=== PATIENT | male | born 1970 | race American Indian/Alaskan Native ===

== ENCOUNTER 2018-02-15 19:54 | Observation (INO) | payer MEDICAID ==
[2018-02-15 20:03] VITALS: BMI 33.4
--- NOTE | 2018-02-15 20:19 | ED PDOC ---
Arrival/HPI - General Chief Complaint: Chest Pain Time Seen by Provider: 02/15/18 19:58 Historian: Patient - History of Present Illness Narrative History of Present Illness (Text): 02/15/18 20:15 47 year old male smoker, whose past medical history includes hypertension, who presents to the Emergency Department complaining of chest discomfort that radiates to shoulder and arm x couple weeks. Patient notes occasionally reproducible with deep breaths. Patient denies any fever, chills, cough, leg pain, trauma, nausea, vomiting, diarrhea, urinary symptoms, back pain, neck pain , headache, dizziness, or any other complaints. Time/Duration: < month Symptom Onset: Sudden Symptom Course: Unchanged Activities at Onset: Light Context: Home Past Medical History - Provider Review Nursing Documentation Reviewed: Yes - Infectious Disease Hx of Infectious Diseases: None - Tetanus Immunization Tetanus Immunization: Unknown - Cardiac Hx Hypertension: Yes - Pulmonary Hx Asthma: Yes Hx Chronic Obstructive Pulmonary Disease (COPD): Yes - Neurological Hx Neurological Disorder: No - HEENT Hx HEENT Disorder: No - Renal Hx Renal Disorder: No - Endocrine/Metabolic Hx Endocrine Disorders: No - Hematological/Oncological Hx Blood Disorders: No - Integumentary Hx Dermatological Disorder: No - Musculoskeletal/Rheumatological Hx Musculoskeletal Disorders: No - Gastrointestinal Hx Gastrointestinal Disorders: No - Genitourinary/Gynecological Hx Genitourinary Disorders: No - Psychiatric Hx Anxiety: No Hx Bipolar Disorder: No Hx Depression: No Hx Post Traumatic Stress Disorder: No Hx Schizophrenia: No Hx Substance Use: Yes (marijuana) - Surgical History Hx Cholecystectomy: Yes - Anesthesia Hx Anesthesia: Yes Hx Anesthesia Reactions: No Hx Malignant Hyperthermia: No - Suicidal Assessment Feels Threatened In Home Enviroment: No Family/Social History - Physician Review Nursing Documentation Reviewed: Yes Family/Social History: Unknown Family HX Smoking Status: Heavy Smoker > 10 Cigarettes Daily Hx Alcohol Use: Yes (1 bottle of beer) Frequency of alcohol use: Daily Hx Substance Use: Yes (marijuana) Substance used: some days Hx Substance Use Treatment: No Allergies/Home Meds Allergies/Adverse Reactions: Allergies No Known Allergies Allergy (Verified 02/15/18 20:02) Home Medications: Home Meds Medication Instructions Recorded Confirmed Amlodipine Besylate 10 mg PO DAILY 06/29/14 02/15/18 Tiotropium [place] [Spiriva] 18 mcg IH PRN PRN 06/29/14 02/15/18 Naproxen [Naprosyn] 500 mg PO BID PRN 03/29/15 02/15/18 Simvastatin [Simvastatin] 10 mg PO DAILY 03/29/15 02/15/18 Hydrocortisone 2.5% (Rectal) 1 appl RC BID PRN 02/07/17 02/15/18 [Anusol-Hc] Review of Systems - Physician Review All systems were reviewed & negative as marked: Yes - Review of Systems Constitutional: Normal Eyes: Normal ENT: Normal Respiratory: Normal. absent: SOB, Cough Cardiovascular: Chest Pain (radiates to shoulder and arm) Gastrointestinal: Normal. absent: Abdominal Pain, Diarrhea, Nausea Genitourinary Male: Normal. absent: Dysuria, Frequency, Hematuria Musculoskeletal: Normal. absent: Back Pain, Neck Pain Skin: Normal. absent: Rash Neurological: Normal. absent: Headache, Dizziness Endocrine: Normal Hemo/Lymphatic: Normal Psychiatric: Normal Physical Exam Vital Signs Reviewed: Yes Vital Signs Temp Pulse Resp BP Pulse Ox 02/15/18 23:01 98.6 F 82 16 136/86 100 02/15/18 23:00 97.6 F 81 18 116/82 96 02/15/18 22:51 18 02/15/18 22:44 82 16 136/86 100 02/15/18 20:03 98.9 F 85 19 144/66 97 Temperature: Afebrile Blood Pressure: Normal Pulse: Regular Respiratory Rate: Normal Appearance: Positive for: Well-Appearing, Non-Toxic, Comfortable Pain Distress: None Mental Status: Positive for: Alert and Oriented X 3 - Systems Exam Head: Present: Atraumatic, Normocephalic Pupils: Present: PERRL Extroacular Muscles: Present: EOMI Conjunctiva: Present: Normal Mouth: Present: Moist Mucous Membranes Neck: Present: Normal Range of Motion Respiratory/Chest: Present: Clear to Auscultation, Good Air Exchange. No: Respiratory Distress, Accessory Muscle Use Cardiovascular: Present: Regular Rate and Rhythm, Normal S1, S2. No: Murmurs Abdomen: No: Tenderness, Distention, Peritoneal Signs Back: Present: Normal Inspection Upper Extremity: Present: Normal Inspection. No: Cyanosis, Edema Lower Extremity: Present: Normal Inspection. No: Edema Neurological: Present: GCS=15, CN II-XII Intact, Speech Normal Skin: Present: Warm, Dry, Normal Color. No: Rashes Psychiatric: Present: Alert, Oriented x 3, Normal Insight, Normal Concentration Medical Decision Making ED Course and Treatment: 02/15/18 20:20 Impression: 47 year old male presents to the Emergency Department complaining of chest discomfort that radiates to shoulder and arm x couple weeks. Plan: -- EKG -- Labs -- Cardiac ISO -- D Dimer -- CXR -- Reassess and disposition Progress Notes: 02/15/18 20:22 EKG reviewed, shows NSR at 89 bpm. Occasional PAC. Non-specific ST/T changes. 02/15/18 22:05: Chest X-ray read and interpreted by me shows linear atelectasis. 02/15/18 22:15: Case discussed with medical records field technician and Dr. Severino who accepts patient to the hospitalist's service. - Lab Interpretations Lab Results: 02/15/18 20:30 02/15/18 20:30 Lab Results 02/15/18 20:30: TSH 3rd Generation 2.36 02/15/18 20:30: WBC 5.1, RBC 3.70, Hgb 12.0 L, Hct 36.2 L, MCV 97.8, MCH 32.4, MCHC 33.1, RDW 12.6, Plt Count 218, MPV 9.9 02/15/18 20:30: Sodium 143, Potassium 3.8, Chloride 107, Carbon Dioxide 26, Anion Gap 14, BUN 25 H, Creatinine 0.9, Est GFR ( Amer) > 60, Est GFR ( Non-Af Amer) > 60, Random Glucose 84, Calcium 9.1, Total Bilirubin 0.6, AST 32, ALT 38, Alkaline Phosphatase 65, Lactate Dehydrogenase 442, Total Creatine Kinase 250 H, CK-MB (CK-2) 1.3, CK-MB (CK-2) % Cancelled, Troponin I < 0.01, Total Protein 6.9, Albumin 4.2, Globulin 2.7, Albumin/Globulin Ratio 1.5 02/15/18 20:30: PT 11.1, INR 0.97, APTT 26.7, D-Dimer, Quantitative < 200 - RAD Interpretation Radiology Orders: 02/15/18 20:13 CHEST PORTABLE [RAD] Stat - Medication Orders Current Medication Orders: Amlodipine Besylate (Norvasc) 10 mg PO DAILY [facility] Aspirin (Aspirin Chewable) 81 mg PO DAILY [facility] Atorvastatin Calcium (Lipitor) 10 mg PO DIN [facility] Folic Acid (Folic Acid) 1 mg PO DAILY [facility] Stop: 02/21/18 23:59 Sodium Chloride (Sodium Chloride 0.9%) 1,000 mls @ 125 mls/hr IV .Q8H [facility] Multivitamins/Vitamin C 10 ml/Thiamine HCl 100 mg/ Folic Acid 1 mg/ Sodium Chloride 1,011.2 mls @ 100 mls/hr IV .Q10H7M ONE Stop: 02/16/18 12:27 Last Admin: 02/16/18 02:55 Dose: 100 mls/hr eMAR Start Stop Document 02/16/18 02:55 FC (Rec: 02/16[facility]18 02:[facility] Intravenous Solution Start Date 02/16/18 Start Time 02:56 End Date 02/16/18 Lorazepam (Ativan) 2 mg IVP Q6H PRN; Protocol PRN Reason: Symptoms of alcohol withdrawl Multivitamins (Thera Tab) 1 tab PO 0800 [facility] Stop: 02/21/18 08:01 Naproxen (Anaprox Ds) 550 mg PO BID PRN PRN Reason: Pain, Mild (1-3) Last Admin: 02/15/18 23:59 Dose: 550 mg Nicotine (Nicoderm Cq) 1 patch TD DAILY [facility] Pantoprazole Sodium (Protonix Ec Tab) 40 mg PO 0600 [facility] Thiamine HCl (Vitamin B1 Tab) 100 mg PO DAILY [facility] Stop: 02/21/18 23:59 Tiotropium [place] (Spiriva) 18 mcg IH DAILY [facility] Discontinued Medications Aspirin (Aspirin) 325 mg PO ONCE STA Stop: 02/15/18 22:20 Last Admin: 02/15/18 22:52 Dose: 325 mg Nitroglycerin (Nitrostat Sl Tab) 0.4 mg SL Q5M [facility] Stop: 02/15/18 23:56 Last Admin: 02/16/18 00:00 Dose: Not Given Non-Admin Reason: Patient Refused - Scribe Statement The provider has reviewed the documentation as recorded by the Scribe Eunice Machado All medical record entries made by the Scribe were at my direction and personally dictated by me. I have reviewed the chart and agree that the record accurately reflects my personal performance of the history, physical exam, medical decision making, and the department course for this patient. I have also personally directed, reviewed, and agree with the discharge instructions and disposition. Disposition/Present on Arrival - Present on Arrival Any Indicators Present on Arrival: No History of DVT/PE: No History of Uncontrolled Diabetes: No Urinary Catheter: No History of Decub. Ulcer: No History Surgical Site Infection Following: None - Disposition Have Diagnosis and Disposition been Completed?: Yes Diagnosis: Chest pain Disposition: HOSPITALIZED Disposition Time: 22:16 Condition: STABLE
[2018-02-15 20:51] LABS: MEAN CELL VOLUME 97.8 fl (80.0-105.0); MEAN CORPUSCULAR HEMOGLOBIN 32.4 pg (25.0-35.0); MEAN CORPUSCULAR HGB CONC 33.1 g/dl (31.0-37.0); MEAN PLATELET VOLUME 9.9 fl (7.0-11.0); RBC 3.7 10^6/uL (3.5-6.1); RED CELL DISTRIBUTION WIDTH 12.6 % (11.5-14.5); WHITE BLOOD COUNT 5.1 10^3/ul (4.5-11.0)
[2018-02-15 20:54] LABS: INR 0.97; PARTIAL THROMBOPLASTIN TIME 26.7 Seconds (25.1-36.5); PROTHROMBIN TIME 11.1 SECONDS (9.4-12.5)
[2018-02-15 20:56] LABS: ALB/GLOB RATIO 1.5 (1.1-1.8); ALBUMIN 4.2 g/dL (3.0-4.8); ALT/SGPT 38 U/L (7-56); AST/SGOT 32 U/L (17-59); BLOOD UREA NITROGEN 25 mg/dL (7-21); CALCIUM 9.1 mg/dL (8.4-10.5); GFR AFRICAN-AMERICAN > 60; GFR NON-AFRICAN AMERICAN > 60
[2018-02-15 21:02] LABS: D DIMER < 200 mg/L DDU (0-243)
[2018-02-15 21:07] LABS: TROPONIN I < 0.01 ng/mL
[2018-02-15 21:22] LABS: CK-MB 1.3 ng/mL (0.0-3.6)
[2018-02-15] MEDS ORDERED: Naproxen 550 mg Tab PO PRN (23:30)
[2018-02-16] MEDS ORDERED: Sodium Chloride 0.9% 1,000 ML IV SCH (00:15)
--- NOTE | 2018-02-16 00:49 | CP.PCM.HP ---
<Fidencio Corcoran - Last Filed: 02/16/18 07:40> History of Present Illness - History of Present Illness History of Present Illness: Fidencio Corcoran D.O. Internal Medicine Resident, PGY-1. History and Physical for Dr Mere Felipe: Cest pain for 1 week HPI: 47 y/o male with PMH of HTN, HLD, asthma, COPD, presents to ED with 3 weeks of right sternal border chest pain, intermittent, 7-9/10, twisting in nature, positional, increased with twisting or turning his trunk, decreased by staying still. Patient took Motrin, Tylenol, Oxycodone for this pain but did not help. Pain is associated with occasional palpitations, and numbness in his left hand and shoulder. Patient also reported one bout of non bloody vomiting 3 days ago. Patient reported his asthma is intermitted, mild, uses inhalers occasionally, no hospital admissions for COPD exacerbations, never intubated. Patient admits to drinking 1/2 pint of alcohol/day, last drink yesterday. No withdrawal symptoms of tremors, diaphoresis, muscle aches, headache reported. No hemoptysis, hematemesis, blood per rectum, ROS is negative for GI, , MSK symptoms BMH: HTN, HLD, asthma, COPD, herniated lumbar desk PSH: cholecystectomy, umbilical hernia, inguinal gris repaire SocH: smokes 1/2-1 PPD x30 years, 1/2 pint of alcohol/day, occasional marijuana use FH: both parents at age late 50s MEDS: amlodipine, asa, simvastatin ALL: NKDA PMD: Dr Elaine PHARMACY: Welcome Present on Admission - Present on Admission Any Indicators Present on Admission: No Review of Systems - Constitutional Constitutional: absent: Chills, Fatigue, Fever, Headache, Lethargy, Snoring, Weight Loss - EENT Eyes: absent: Diplopia, Discharge, Irritation, Sees Flashes Ears: absent: Ear Pain, Dizziness Nose/Mouth/Throat: absent: Nasal Congestion, Nose Pain, Post Nasal Drip, Sinus Pain - Cardiovascular Cardiovascular: Chest Pain, Diaphoresis, Palpitations. absent: Dyspnea on Exertion, Irregular Heart Rhythm, Leg Edema, Lightheadedness, Pedal Edema - Respiratory Respiratory: Cough, Pain on Inspiration, Pain with Coughing. absent: Hemoptysis , Wheezing, Chest Congestion, Change in Mucous Color - Gastrointestinal Gastrointestinal: Vomiting. absent: Bloating, Coffee Ground Emesis, Constipation, Diarrhea, Dyspepsia, Dysphagia, Hematemesis, Hematochezia - Genitourinary Genitourinary: absent: Dysuria, Pyuria, Urinary Frequency, Urinary Urgency - Musculoskeletal Musculoskeletal: Back Pain, Numbness. absent: Muscle Weakness, Stiffness - Integumentary Integumentary: absent: Lesions, Pruritus, Rash, Skin Ulcer, Sores, Wounds - Neurological Neurological: Numbness. absent: Confusion, Dizziness, Focal Weakness, Frequent Falls, Headaches, Lack of Coordination - Psychiatric Psychiatric: absent: Anxiety, Confusion, Irritability, Mood Swings, Panic Attacks - Endocrine Endocrine: absent: Fatigue, Flushing - Hematologic/Lymphatic Hematologic: absent: Easy Bleeding, Easy Bruising Past Patient History - Infectious Disease Hx of Infectious Diseases: None - Tetanus Immunizations Tetanus Immunization: Unknown - Past Medical History & Family History Past Medical History?: Yes - Past Social History Smoking Status: Heavy Smoker > 10 Cigarettes Daily Alcohol: > 2 Drinks/Day Drugs: Cannabis Home Situation {Lives}: With Family - CARDIAC Hx Cardiac Disorders: Yes Hx Hypercholesterolemia: Yes Hx Hypertension: Yes - PULMONARY Hx Respiratory Disorders: Yes Hx Asthma: Yes Hx Chronic Obstructive Pulmonary Disease (COPD): Yes Hx Pneumonia: No Hx Sleep Apnea: No - NEUROLOGICAL Hx Neurological Disorder: No HX Cerebrovascular Accident: No Hx Seizures: No Hx Transient Ischemic Attacks (TIA): No - HEENT Hx HEENT Problems: No - RENAL Hx Chronic Kidney Disease: Yes Hx Kidney Stones: Yes - ENDOCRINE/METABOLIC Hx Endocrine Disorders: No Hx Diabetes Mellitus Type 2: No - HEMATOLOGICAL/ONCOLOGICAL Hx Blood Disorders: No Hx Anemia: No Hx Cancer: No Hx Shingles: No - INTEGUMENTARY Hx Dermatological Problems: No - MUSCULOSKELETAL/RHEUMATOLOGICAL Hx Musculoskeletal Disorders: No Hx Falls: No - GASTROINTESTINAL Hx Gastrointestinal Disorders: Yes (hernia repair) Hx Gall Bladder Disease: Yes (cholecystectomy) - GENITOURINARY/GYNECOLOGICAL Hx Genitourinary Disorders: No - PSYCHIATRIC Hx Psychophysiologic Disorder: Yes Hx Anxiety: Yes Hx Bipolar Disorder: No Hx Depression: Yes Hx Post Traumatic Stress Disorder: No Hx Schizophrenia: No - SURGICAL HISTORY Hx Surgeries: Yes Hx Cholecystectomy: Yes - ANESTHESIA Hx Anesthesia: Yes Hx Anesthesia Reactions: No Hx Malignant Hyperthermia: No Meds Allergies/Adverse Reactions: Allergies Allergy/AdvReac Type Severity Reaction Status Date / Time No Known Allergies Allergy Verified 02/15/18 20:02 Physical Exam - Constitutional Appears: Non-toxic, No Acute Distress - Head Exam Head Exam: ATRAUMATIC, NORMAL INSPECTION, NORMOCEPHALIC - Eye Exam Eye Exam: EOMI, Normal appearance, PERRL Pupil Exam: NORMAL ACCOMODATION, PERRL - ENT Exam ENT Exam: Mucous Membranes Moist, Normal Exam - Neck Exam Neck exam: Positive for: Normal Inspection - Respiratory Exam Respiratory Exam: Clear to Auscultation Bilateral, NORMAL BREATHING PATTERN - Cardiovascular Exam Cardiovascular Exam: REGULAR RHYTHM, +S1, +S2 - GI/Abdominal Exam GI & Abdominal Exam: Normal Bowel Sounds, Soft. absent: Tenderness - Extremities Exam Extremities exam: Positive for: normal inspection, pedal pulses present. Negative for: calf tenderness - Back Exam Back exam: NORMAL INSPECTION. absent: CVA tenderness (L), CVA tenderness (R) - Neurological Exam Neurological exam: Alert, CN II-XII Intact, Normal Gait, Oriented x3, Reflexes Normal - Psychiatric Exam Psychiatric exam: Normal Affect, Normal Mood - Skin Skin Exam: Dry, Intact, Normal Color, Warm Results - Vital Signs Recent Vital Signs: Last Vital Signs Temp 98.6 F 02/15/18 23:01 Pulse 82 02/15/18 23:01 Resp 16 02/15/18 23:01 BP 136/86 02/15/18 23:01 Pulse Ox 100 02/15/18 23:01 - Labs Result Diagrams: 02/15/18 20:30 02/15/18 20:30 - EKG Data EKG Interpreted by: ER Physician EKG shows normal: Sinus rhythm Rate: Normal Assessment & Plan - Assessment and Plan (Free Text) Assessment: 47 y/o male with PMH of HTN, HLD, asthma, COPD, presents to ED with 3 weeks of right sternal border intermittent chest pain. Trop 0.01, EKG, NSR@89. Patient is a heavy smoker, alcoholic and has family history of premature CAD. Plan: 1) Chest pain/ ACS EKG: NSR@89 QT prolonged 404, LVH Troponin 0.01 x1 will trend q6h Nitro 0.4 mg SL x3 q5min prn chest pain ASA 325 given once Naproxin q8 prn pain Echo Cardio consulted 2)Chronic alcohol use blood alcohol level ordered ativan 2 mg ivp prn. symptoms of alcohol withdrawal [facility] protocol CBC,CMP, B12, folate Banana bag ordered Supplemental thaimine, folate, multivitamin to start tomorrow am Urine drug screen ordered 3)HTN continue home med Amlodipine 10 mg continue home med ASA 81 4)HLD continue home meds lipitor 10 lipid panel ordered 5)Obesity Weight reduction addictions counselor assistant HbA1c 6)Heavy smoker chronic cough related to smoking smoking counseling discussed with patient Nicoderm 14 mg patch 7)Asthma/COPD continue home med Spiriva O2 2L prn SOB 8)Others GI ppx SCD heart healthy diet Case discussed and reviewed with Dr Severino - Date & Time Date: 02/16/18 Time: 01:00 <James Severino - Last Filed: 02/16/18 19:23> Results - Vital Signs Recent Vital Signs: Last Vital Signs Temp 97.9 F 02/16/18 08:52 Pulse 71 02/16/18 10:00 Resp 19 02/16/18 08:52 BP 128/93 H 02/16/18 08:52 Pulse Ox 97 02/16/18 08:52 - Labs Result Diagrams: 02/16/18 02:56 02/16/18 02:56 Labs: Laboratory Results - last 24 hr 02/16/18 02/16/18 02/16/18 02:56 02:56 02:56 WBC 4.4 L RBC 3.63 Hgb 11.8 L Hct 35.3 L MCV 97.2 MCH 32.5 MCHC 33.4 RDW 12.6 Plt Count 186 MPV 9.6 Gran % 46.1 L Lymph % (Auto) 44.5 H Mel[place] % (Auto) 6.7 H Eos % (Auto) 2.5 Baso % (Auto) 0.2 Gran # 2.01 Lymph # (Auto) 1.9 Mel[place] # (Auto) 0.3 Eos # (Auto) 0.1 Baso # (Auto) 0.01 Sodium 141 Potassium 3.5 L Chloride 106 Carbon Dioxide 26 Anion Gap 13 BUN 20 Creatinine 0.9 Est GFR ( Amer) > 60 Est GFR (Non-Af Amer) > 60 Random Glucose 117 H Calcium 8.8 Phosphorus 3.6 Magnesium 2.1 Total Bilirubin 0.6 AST 32 ALT 39 Alkaline Phosphatase 62 Troponin I < 0.01 Total Protein 6.7 Albumin 3.9 Globulin 2.8 Albumin/Globulin Ratio 1.4 Triglycerides 210 H Cholesterol 149 LDL Cholesterol Direct 69 HDL Cholesterol 49 Vitamin B12 449 Folate 12.2 Alcohol, Quantitative < 10 02/16/18 08:50 WBC RBC Hgb Hct MCV MCH MCHC RDW Plt Count MPV Gran % Lymph % (Auto) Mellette % (Auto) Eos % (Auto) Baso % (Auto) Gran # Lymph # (Auto) Mellette # (Auto) Eos # (Auto) Baso # (Auto) Sodium Potassium Chloride Carbon Dioxide Anion Gap BUN Creatinine Est GFR ( Amer) Est GFR (Non-Af Amer) Random Glucose Calcium Phosphorus Magnesium Total Bilirubin AST ALT Alkaline Phosphatase Troponin I < 0.01 Total Protein Albumin Globulin Albumin/Globulin Ratio Triglycerides Cholesterol LDL Cholesterol Direct HDL Cholesterol Vitamin B12 Folate Alcohol, Quantitative Attending/Attestation - Attestation I have personally seen and examined this patient.: Yes I have fully participated in the care of the patient.: Yes I have reviewed all pertinent clinical information: Yes Notes (Text): 02/16/18 19:23 Patient was seen when he was in the ER. Agree with history , physical examination, assessment and plan.
[2018-02-16] MEDS ORDERED: Multivitamin (MVI) 10 ML, Thiamine 100 MG, Folic Acid 1 MG in Sodium Chloride 0.9% 1,00... IV ONE (02:21)
[2018-02-16 03:09] LABS: BASO # 0.01 K/mm3 (0.0-2.0); BASO % 0.2 % (0.0-3.0); EOS # 0.1 (0.0-0.7); EOS % 2.5 % (1.5-5.0); GRAN # 2.01 (1.4-6.5); GRAN % 46.1 % (50.0-68.0); HEMOGLOBIN 11.8 g/dL (14.0-18.0); LYMPH # 1.9 (1.2-3.4); LYMPH % 44.5 % (22.0-35.0); MEAN CELL VOLUME 97.2 fl (80.0-105.0); MEAN CORPUSCULAR HEMOGLOBIN 32.5 pg (25.0-35.0); MEAN CORPUSCULAR HGB CONC 33.4 g/dl (31.0-37.0); MEAN PLATELET VOLUME 9.6 fl (7.0-11.0); MONO # 0.3 (0.1-0.6); MONO % 6.7 % (1.0-6.0); RBC 3.63 10^6/uL (3.5-6.1); RED CELL DISTRIBUTION WIDTH 12.6 % (11.5-14.5); WHITE BLOOD COUNT 4.4 10^3/ul (4.5-11.0)
[2018-02-16 03:21] LABS: ALB/GLOB RATIO 1.4 (1.1-1.8); ALBUMIN 3.9 g/dL (3.0-4.8); ALT/SGPT 39 U/L (7-56); AST/SGOT 32 U/L (17-59); BLOOD UREA NITROGEN 20 mg/dL (7-21); CALCIUM 8.8 mg/dL (8.4-10.5); GFR AFRICAN-AMERICAN > 60; GFR NON-AFRICAN AMERICAN > 60; HDL CHOLESTEROL 49 mg/dL (29-60)
[2018-02-16 03:31] LABS: LDL CHOLESTEROL 69 mg/dL (0-129); TROPONIN I < 0.01 ng/mL
[2018-02-16] MEDS ORDERED: Pantoprazole 40 mg EC Tab PO SCH (06:00)
[2018-02-16 08:52] VITALS: BP 128/93; RESP 19; TEMP 97.9; O2SAT 97
[2018-02-16] MEDS ORDERED: Tiotropium 18 mcg Cap For Inhalation IH SCH (10:00)
[2018-02-16] MEDS ORDERED: Potassium Chloride 20 mEq ER Tab PO ONE (10:53)
[2018-02-16 11:26] VITALS: PULSE 71
--- NOTE | 2018-02-16 11:50 | CARD ---
APPROVED REPORT Date of service: 02/16/2018 EKG Measurement Heart [id number] <Conclusion> Sinus rhythm with occasional premature ventricular complexes Nonspecific T wave abnormality Prolonged QT Abnormal ECG
--- NOTE | 2018-02-16 12:18 | RAD ---
Date of service: 02/15/2018 HISTORY: pain COMPARISON: 05/05/2016 FINDINGS: LUNGS: No active pulmonary disease. PLEURA: No significant pleural effusion identified, no pneumothorax apparent. CARDIOVASCULAR: Normal. OSSEOUS STRUCTURES: No significant abnormalities. VISUALIZED UPPER ABDOMEN: Normal. OTHER FINDINGS: None. IMPRESSION: No active disease.
[2018-02-16 13:56] LABS: FOLATE 12.2 ng/mL
--- NOTE | 2018-02-16 15:44 | CARD ---
APPROVED REPORT Date of service: 02/15/2018 EKG Measurement Heart [id number] <Conclusion> Sinus rhythm with premature atrial complexes Minimal voltage criteria for LVH, may be normal variant Prolonged QT Abnormal ECG
--- NOTE | 2018-02-16 20:03 | CON ---
Copied To: Zehra Murillo MD Attending MD: Zehra Murillo MD DATE: 02/16/2018 SERVICE: Cardiology. REASON FOR THE CONSULTATION AND FOLLOWUP: Chest pain for 2 weeks, cardiac evaluation. BRIEF CLINICAL HISTORY: This is a 47-year-old male with a past medical history significant for hypertension, hyperlipidemia, asthma, COPD. Presents to the emergency room with 2 to 3 weeks' history of right-sided parasternal chest pain, increases on movement and twisting the body and did not go away. Since last 2 weeks, when he raises his hand or moves his right arm toward the chest, chest pain hurts. Also hurts on walking and motion of the body. Denies any prior episode of chest pain. PAST HISTORY: Significant for hypertension, hyperlipidemia, obesity, asthma, COPD, herniated lumbar disk. PAST SURGICAL HISTORY: Significant for cholecystectomy 4 to 5 years ago, history of umbilical hernia, history of inguinal hernia repair. SOCIAL HISTORY: Active tobacco abuse. Smokes half a pack a day, more than 30 years. Heavy alcohol abuse, drinks hard liquor half a pint everyday. Occasional marijuana use. FAMILY HISTORY: No significant history of coronary artery disease in the family. CURRENT MEDICATIONS: The patient is taking amlodipine and taking Zocor 10 mg daily. ALLERGIES: NO KNOWN DRUG ALLERGIES. REVIEW OF SYSTEMS: As per HPI. PHYSICAL EXAMINATION: GENERAL: Height of the patient 5 feet 8 inches, weight of the patient 220 pounds, body mass index 33.5 kg/m2. VITAL SIGNS: Temperature afebrile, heart rate 63, blood pressure 128/93. HEENT: PERRLA. Extraocular muscles intact. NECK: Supple. No carotid bruit. No thyromegaly. CHEST: Clear to auscultation. HEART: S1 and S2, regular. ABDOMEN: Soft. EXTREMITIES: Clubbing and cyanosis negative. LABORATORY DATA: Blood workup as follows; WBC 4.5, hemoglobin 11.8, hematocrit 35.3, platelet count 186. Chemistry shows sodium 145, potassium 3.5, chloride 106, carbon dioxide 26, anion gap of 13. BUN 20, creatinine 0.9. Troponin 0.01, negative. TSH 2.36. Total cholesterol 149, LDL 69, triglyceride 210, HDL 49. EKG shows normal sinus rhythm. No acute [id number] noted. IMPRESSION: Atypical chest pain, musculoskeletal, increases on movement and twisting the body, but given the multiple risk factors of coronary artery disease including hypertension, hyperlipidemia, active tobacco abuse, questionable history of brother , he did not tell me, but he told the residents the patient's brother , sudden . Given these risk factors, suggest echo and a stress test. We will get echo today and a stress test has been scheduled as outpatient. We will also supplement potassium. Discussed with Dr. Peoples, attending of the case and we will start some nonsteroidal antiinflammatory drug, Naprosyn, and supplement potassium. We will follow with you. We will discontinue telemetry and schedule stress test as outpatient. Thank you Dr. Peoples, for providing us the opportunity in taking care of the patient, Juwan Anderson. Zehra Murillo MD
[2018-02-17] MEDS ORDERED: Multivitamin Therapeutic Tab PO SCH (08:00)
--- NOTE | 2018-02-17 23:13 | CP.PCM.DIS ---
Provider - Provider Date of Admission: 02/15/18 22:16 Attending physician: Zehra Thomas MD Primary care physician: Zak Elaine MD Consults: Cardiology - Zehra Aguilar Time Spent in preparation of Discharge (in minutes): 40 Diagnosis - Discharge Diagnosis (1) HTN (hypertension) Status: Chronic Priority: Medium (2) HLD (hyperlipidemia) Status: Chronic Priority: Low (3) COPD (chronic obstructive pulmonary disease) Status: Chronic Priority: Medium (4) Herniated lumbar intervertebral disc Status: Chronic Priority: Low (5) Chest pain Status: Acute Priority: High (6) Tobacco abuse Status: Chronic Priority: High (7) Alcohol abuse Status: Chronic Priority: High Hospital Course - Lab Results Lab Results: Most Recent Lab Values WBC 4.4 10^3/ul (4.5-11.0) L 02/16/18 02:56 RBC 3.63 10^6/uL (3.5-6.1) 02/16/18 02:56 Hgb 11.8 g/dL (14.0-18.0) L 02/16/18 02:56 Hct 35.3 % (42.0-52.0) L 02/16/18 02:56 MCV 97.2 fl (80.0-105.0) 02/16/18 02:56 MCH 32.5 pg (25.0-35.0) 02/16/18 02:56 MCHC 33.4 g/dl (31.0-37.0) 02/16/18 02:56 RDW 12.6 % (11.5-14.5) 02/16/18 02:56 Plt Count 186 10^3/uL (120.0-450.0) 02/16/18 02:56 MPV 9.6 fl (7.0-11.0) 02/16/18 02:56 Gran % 46.1 % (50.0-68.0) L 02/16/18 02:56 Lymph % (Auto) 44.5 % (22.0-35.0) H 02/16/18 02:56 Millard % (Auto) 6.7 % (1.0-6.0) H 02/16/18 02:56 Eos % (Auto) 2.5 % (1.5-5.0) 02/16/18 02:56 Baso % (Auto) 0.2 % (0.0-3.0) 02/16/18 02:56 Gran # 2.01 (1.4-6.5) 02/16/18 02:56 Lymph # (Auto) 1.9 (1.2-3.4) 02/16/18 02:56 Millard # (Auto) 0.3 (0.1-0.6) 02/16/18 02:56 Eos # (Auto) 0.1 (0.0-0.7) 02/16/18 02:56 Baso # (Auto) 0.01 K/mm3 (0.0-2.0) 02/16/18 02:56 PT 11.1 SECONDS (9.4-12.5) 02/15/18 20:30 INR 0.97 02/15/18 20:30 APTT 26.7 Seconds (25.1-36.5) 02/15/18 20:30 D-Dimer, Quantitative < 200 mg/L DDU (0-243) 02/15/18 20:30 Sodium 141 mmol/L (132-148) 02/16/18 02:56 Potassium 3.5 mmol/L (3.6-5.0) L 02/16/18 02:56 Chloride 106 mmol/L (98-107) 02/16/18 02:56 Carbon Dioxide 26 mmol/L (21-33) 02/16/18 02:56 Anion Gap 13 (10-20) 02/16/18 02:56 BUN 20 mg/dL (7-21) 02/16/18 02:56 Creatinine 0.9 mg/dl (0.8-1.5) 02/16/18 02:56 Est GFR ( Amer) > 60 02/16/18 02:56 Est GFR (Non-Af Amer) > 60 02/16/18 02:56 Random Glucose 117 mg/dL (70-110) H 02/16/18 02:56 Hemoglobin A1c 4.7 % (4.2-6.5) 02/15/18 20:30 Calcium 8.8 mg/dL (8.4-10.5) 02/16/18 02:56 Phosphorus 3.6 mg/dL (2.5-4.5) 02/16/18 02:56 Magnesium 2.1 mg/dL (1.7-2.2) 02/16/18 02:56 Total Bilirubin 0.6 mg/dL (0.2-1.3) 02/16/18 02:56 AST 32 U/L (17-59) 02/16/18 02:56 ALT 39 U/L (7-56) 02/16/18 02:56 Alkaline Phosphatase 62 U/L (38-126) 02/16/18 02:56 Lactate Dehydrogenase 442 U/L (333-699) 02/15/18 20:30 Total Creatine Kinase 250 U/L (35-230) H 02/15/18 20:30 CK-MB (CK-2) 1.3 ng/mL (0.0-3.6) 02/15/18 20:30 CK-MB (CK-2) % Cancelled 02/15/18 20:30 Troponin I < 0.01 ng/mL 02/16/18 08:50 Total Protein 6.7 g/dL (5.8-8.3) 02/16/18 02:56 Albumin 3.9 g/dL (3.0-4.8) 02/16/18 02:56 Globulin 2.8 gm/dL 02/16/18 02:56 Albumin/Globulin Ratio 1.4 (1.1-1.8) 02/16/18 02:56 Triglycerides 210 mg/dL (35-160) H 02/16/18 02:56 Cholesterol 149 mg/dL (130-200) 02/16/18 02:56 LDL Cholesterol Direct 69 mg/dL (0-129) 02/16/18 02:56 HDL Cholesterol 49 mg/dL (29-60) 02/16/18 02:56 Vitamin B12 449 pg/mL (239-931) 02/16/18 02:56 Folate 12.2 ng/mL 02/16/18 02:56 TSH 3rd Generation 2.36 mIU/mL (0.46-4.68) 02/15/18 20:30 Alcohol, Quantitative < 10 mg/dL (0-10) 02/16/18 02:56 - Hospital Course Hospital Course: Trevor Pike DO PGY1 Internal Medicine [place] - Hospital Discharge Summary HPI: 47 y/o male with PMH of HTN, HLD, asthma, COPD, presents to ED with 3 weeks of right sternal border chest pain, intermittent, 7-9/10, twisting in nature, positional, increased with twisting or turning his trunk, decreased by staying still. Patient took Motrin, Tylenol, Oxycodone for this pain but did not help. Pain is associated with occasional palpitations, and numbness in his left hand and shoulder. Patient also reported one bout of non bloody vomiting 3 days ago. Patient reported his asthma is intermitted, mild, uses inhalers occasionally, no hospital admissions for COPD exacerbations, never intubated. Patient admits to drinking 1/2 pint of alcohol/day, last drink yesterday. No withdrawal symptoms of tremors, diaphoresis, muscle aches, headache reported. No hemoptysis, hematemesis, blood per rectum, ROS is negative for GI, , MSK symptoms In ED: Vital signs stable CBC wnl CMP w/ BUN elevated Troponins negative EKG in sinus rhythm w/ PAC; prolonged QTc at 491, no ischemic changes CXR - no active cardiopulmonary disease Patient subsequently admitted to obs for chest pain workup and ACS r/o. Hospital Course: Troponins remained negative x3 and follow up EKG showed no ischemic changes. Patient was seen and examined at bedside prior to him signing out AMA; No cardiopulmonary complaints voiced at bedside; no issues reported overnight. Patient was medically stable. Vital signs were within normal limits; no acute events reported overnight. Cardiology saw patient and recommended he get an echo and stress test. Patient signed out AMA prior to completing echo. He does have an appoint to follow up with cardiology as outpt regarding stress test. - Date & Time of H&P Date of H&P: 02/16/18 Time of H&P: 00:48 Discharge Exam - Head Exam Head Exam: ATRAUMATIC, NORMAL INSPECTION, NORMOCEPHALIC - Eye Exam Eye Exam: EOMI, PERRL. absent: Scleral icterus - Respiratory Exam Respiratory Exam: Clear to PA & Lateral, NORMAL BREATHING PATTERN. absent: Rhonchi, Wheezes, Respiratory Distress - Cardiovascular Exam Cardiovascular Exam: RRR, +S1, +S2. absent: Systolic Murmur Additional comments: Some chest wall tenderness - GI/Abdominal Exam GI & Abdominal Exam: Normal Bowel Sounds. absent: Tenderness - Extremities Exam Additional comments: Tenderness of chest wall to upper extremity movement - Back Exam Back exam: absent: CVA tenderness (L), CVA tenderness (R) - Neurological Exam Neurological exam: Alert, CN II-XII Intact, Oriented x3 - Psychiatric Exam Psychiatric exam: Normal Affect, Normal Mood - Skin Skin Exam: Dry, Intact, Normal Color, Warm Discharge Plan - Follow Up Plan Condition: STABLE Disposition: AGAINST MEDICAL ADVICE Referrals: Zak Elaine [Primary Care Provider] -
== END 2018-02-16 12:57 | disposition left against medical advice (07) ==
LOC: ED 19:54 → ERH 22:16 → 3RSO 22:58
PROVIDERS: ADMIT Internal Medicine; ATTEND Internal Medicine
DX: R07.89 Other chest pain (principal); E78.5 Hyperlipidemia, unspecified; E78.00 Pure hypercholesterolemia, unspecified; I12.9 Hypertensive chronic kidney disease with stage 1 through stage 4 chronic kidney disease, or unspecified chronic kidney disease; N18.9 Chronic kidney disease, unspecified; Z87.442 Personal history of urinary calculi; J44.9 Chronic obstructive pulmonary disease, unspecified; F17.210 Nicotine dependence, cigarettes, uncomplicated; F10.10 Alcohol abuse, uncomplicated; F12.90 Cannabis use, unspecified, uncomplicated; Z82.49 Family history of ischemic heart disease and other diseases of the circulatory system; Z90.49 Acquired absence of other specified parts of digestive tract; E66.9 Obesity, unspecified; Z68.33 Body mass index [BMI] 33.0-33.9, adult; M51.26 Other intervertebral disc displacement, lumbar region
CPT/HCPCS: 36415; 71045; 80053; 80061; 80320; 82550; 82553; 82607; 82746; 83036; 83615; 83735; 84100; 84443; 84484; 85025; 85027; 85378; 85610; 85730; 93005; 99285; G0378; J3411; J7030

== ENCOUNTER 2018-09-15 05:44 | Emergency (ER) | payer MEDICAID ==
[2018-09-15 05:44] VITALS: BMI 33.4
--- NOTE | 2018-09-15 06:04 | ED PDOC ---
Arrival/HPI - General Chief Complaint: Lower Extremity Problem/Injury Time Seen by Provider: 09/15/18 05:55 Historian: Patient - History of Present Illness Narrative History of Present Illness (Text): 09/15/18 05:59 Juwan Barksdale is a 48 year old male, whose past medical history includes hypertension and hyperlipidemia, who presents to the Emergency department complaining of discomfort to the right knee radiating behind the right knee and down to his right calf for the past 2 weeks. Patient states he has been Motrin at home with no significant relief. Patient denies any recent trauma/injury, decreased range of motion, chest pain, shortness of breath, back pain, neck pain, headache, dizziness, or any other complaints. Patient is able to ambulate without difficulty. Symptom Onset: Gradual Symptom Course: Unchanged Activities at Onset: Light Context: Home Past Medical History - Provider Review Nursing Documentation Reviewed: Yes - Infectious Disease Hx of Infectious Diseases: None - Tetanus Immunization Tetanus Immunization: Unknown - Cardiac Hx Cardiac Disorders: Yes Hx Hypertension: Yes - Pulmonary Hx Respiratory Disorders: Yes Hx Asthma: Yes Hx Chronic Obstructive Pulmonary Disease (COPD): Yes Hx Pneumonia: No Hx Sleep Apnea: No - Neurological Hx Neurological Disorder: No HX Cerebrovascular Accident: No Hx Seizures: No Hx Transient Ischemic Attacks (TIA): No - HEENT Hx HEENT Disorder: No - Renal Hx Renal Disorder: Yes Hx Kidney Stones: Yes - Endocrine/Metabolic Hx Endocrine Disorders: No Hx Diabetes Mellitus Type 2: No - Hematological/Oncological Hx Blood Disorders: No Hx Anemia: No Hx Cancer: No Hx Shingles: No - Integumentary Hx Dermatological Disorder: No - Musculoskeletal/Rheumatological Hx Musculoskeletal Disorders: No Hx Falls: No - Gastrointestinal Hx Gastrointestinal Disorders: Yes (hernia repair) Hx Gall Bladder Disease: Yes (cholecystectomy) - Genitourinary/Gynecological Hx Genitourinary Disorders: No - Psychiatric Hx Psychophysiologic Disorder: Yes Hx Anxiety: Yes Hx Bipolar Disorder: No Hx Depression: Yes Hx Post Traumatic Stress Disorder: No Hx Schizophrenia: No Hx Substance Use: Yes (marijuana) - Surgical History Hx Cholecystectomy: Yes - Anesthesia Hx Anesthesia: Yes Hx Anesthesia Reactions: No Hx Malignant Hyperthermia: No - Suicidal Assessment Feels Threatened In Home Enviroment: No Family/Social History - Physician Review Nursing Documentation Reviewed: Yes Family/Social History: Unknown Family HX Smoking Status: Light Smoker < 10 Cigarettes Daily Hx Alcohol Use: Yes (1 bottle of beer) Frequency of alcohol use: Daily Hx Substance Use: Yes (marijuana) Substance used: some days Hx Substance Use Treatment: No Allergies/Home Meds Allergies/Adverse Reactions: Allergies No Known Allergies Allergy (Verified 02/15/18 20:02) Home Medications: Home Meds Medication Instructions Recorded Confirmed Cholecalciferol (Vitamin D3) 1 tab PO QWK 09/15/18 09/15/18 [D3-5000 90 mg-5000 Iu] Simvastatin [Zocor] 40 mg PO DAILY 09/15/18 09/15/18 amLODIPine [Norvasc] 10 mg PO DAILY 09/15/18 09/15/18 Review of Systems - Physician Review All systems were reviewed & negative as marked: Yes - Review of Systems Constitutional: Normal. absent: Fevers Eyes: Normal ENT: Normal Respiratory: Normal. absent: SOB, Cough Cardiovascular: Calf Pain (+right calf pain). absent: Chest Pain Gastrointestinal: Normal. absent: Abdominal Pain, Diarrhea, Nausea, Vomiting Genitourinary Male: Normal. absent: Dysuria, Frequency, Hematuria, Urinary Output Changes Musculoskeletal: Arthralgias (+right knee pain). absent: Back Pain, Neck Pain Skin: Normal. absent: Rash Neurological: Normal. absent: Headache, Dizziness Endocrine: Normal Hemo/Lymphatic: Normal Psychiatric: Normal Physical Exam Vital Signs Reviewed: Yes Vital Signs Temp Pulse Resp BP Pulse Ox 09/15/18 05:55 97.7 F 80 18 122/63 96 Temperature: Afebrile Blood Pressure: Normal Pulse: Regular Respiratory Rate: Normal Appearance: Positive for: Well-Appearing, Non-Toxic, Comfortable Pain Distress: None Mental Status: Positive for: Alert and Oriented X 3 - Systems Exam Head: Present: Atraumatic, Normocephalic Pupils: Present: PERRL Extroacular Muscles: Present: EOMI Conjunctiva: Present: Normal Mouth: Present: Moist Mucous Membranes Neck: Present: Normal Range of Motion Respiratory/Chest: Present: Clear to Auscultation, Good Air Exchange. No: Respiratory Distress, Accessory Muscle Use Cardiovascular: Present: Regular Rate and Rhythm, Normal S1, S2. No: Murmurs Lower Extremity: Present: NORMAL PULSES, Normal ROM, Tenderness (Minimal discomfort with flexion of right knee), Neurovascularly Intact, Capillary Refill < 2 s. No: Edema, Swelling, Erythema, Deformity, Temperature Abnormalties Neurological: Present: GCS=15, CN II-XII Intact, Speech Normal Skin: Present: Warm, Dry, Normal Color. No: Rashes Psychiatric: Present: Alert, Oriented x 3, Normal Insight, Normal Concentration Medical Decision Making ED Course and Treatment: 09/15/18 05:59 Impression: 48 year old male complaining of right knee/calf pain. Plan: -- XR Right Knee -- US Duplex Lower Extremities -- Reassess and disposition Progress Notes: 09/15/18 07:[address] Roldan, pending US, re-evaluation, and disposition. 09/15/18 06:48 Right Knee X-Ray- No acute process - Scribe Statement The provider has reviewed the documentation as recorded by the Laurenibtray Gamino Provider Scribe Attestation: All medical record entries made by the Scribe were at my direction and personally dictated by me. I have reviewed the chart and agree that the record accurately reflects my personal performance of the history, physical exam, medical decision making, and the department course for this patient. I have also personally directed, reviewed, and agree with the discharge instructions and disposition. Disposition/Present on Arrival - Present on Arrival Any Indicators Present on Arrival: No History of DVT/PE: No History of Uncontrolled Diabetes: No Urinary Catheter: No History of Decub. Ulcer: No History Surgical Site Infection Following: None - Disposition Have Diagnosis and Disposition been Completed?: No Diagnosis: Knee pain Disposition Time: 07:00 Condition: STABLE Forms: [employer] (Norwegian)
--- NOTE | 2018-09-15 09:18 | US ---
PROCEDURE: Right lower extremity venous US HISTORY: Leg pain and swelling. Evaluate for DVT. PHYSICIAN(S): Abdiaziz Lopez M.D. TECHNIQUE: Duplex sonography and color-flow Doppler with graded compression were used to evaluate the deep venous system of the right lower extremity. FINDINGS: The visualized deep venous system of the right lower extremity is sonographically normal and compressible. Normal waveforms and augmentation are seen. There is no sonographic evidence for deep venous thrombosis in the visualized segments of the right lower extremity. IMPRESSION: 1. No sonographic evidence for deep venous thrombosis in the visualized segments of the right lower extremity.
[2018-09-15 10:18] VITALS: BP 117/82; PULSE 72; RESP 16; TEMP 97.7; O2SAT 100
--- NOTE | 2018-09-15 11:19 | RAD ---
Date of service: 09/15/2018 PROCEDURE: Right Knee Radiographs. HISTORY: pain COMPARISON: None. FINDINGS: BONES: Normal. No fracture. JOINTS: Normal. No osteoarthritis. JOINT EFFUSION: None. OTHER FINDINGS: None. IMPRESSION: Normal radiographs of the right knee.
== END 2018-09-15 07:16 | disposition home or self-care (01) ==
LOC: ED 05:44
DX: M25.561 Pain in right knee (principal); I10 Essential (primary) hypertension; E78.5 Hyperlipidemia, unspecified; F17.210 Nicotine dependence, cigarettes, uncomplicated

== ENCOUNTER 2018-10-10 14:18 | Emergency (ER) | payer MEDICAID ==
[2018-10-10 14:25] VITALS: BMI 34.2
[2018-10-10 14:29] VITALS: RESP 18; TEMP 98.5
--- NOTE | 2018-10-10 16:37 | RAD ---
Date of service: 10/10/2018 PROCEDURE: Right Knee and patella radiographs. HISTORY: knee pain COMPARISON: None. TECHNIQUE: Three views obtained. FINDINGS: BONES: Normal. No fracture. JOINTS: Normal. No osteoarthritis. JOINT EFFUSION: None. OTHER FINDINGS: None. IMPRESSION: Normal radiographs of the right knee.
--- NOTE | 2018-10-10 17:10 | ED PDOC ---
Arrival/HPI - General Chief Complaint: Lower Extremity Problem/Injury Time Seen by Provider: 10/10/18 14:32 Historian: Patient - History of Present Illness Narrative History of Present Illness (Text): 10/10/18 17:07 48-year-old male presents today with a 2-week history of right-sided knee pain. Patient denies any trauma or injury. Patient states he was seen in the emergency room 2 weeks ago and had x-rays and ultrasound and he was told there was no blood clot and there was no broken bone. Patient states he has has been ambulating on the affected leg and has not been using the cane or knee immobilizer. Patient states he has not followed up with the orthopedist. He denies fevers or chills. He denies numbness weakness or tingling in the extremity. Patient states the pain is located over the anterior aspect of the knee the posterior aspect of the knee and radiates into the calf. Past Medical History - Provider Review Nursing Documentation Reviewed: Yes - Travel History Have you recently traveled outside [place] w/in the past 3 mons?: No - Infectious Disease Hx of Infectious Diseases: None - Tetanus Immunization Tetanus Immunization: Unknown - Cardiac Hx Cardiac Disorders: Yes Hx Hypertension: Yes - Pulmonary Hx Respiratory Disorders: Yes Hx Asthma: Yes Hx Chronic Obstructive Pulmonary Disease (COPD): Yes Hx Pneumonia: No Hx Sleep Apnea: No - Neurological Hx Neurological Disorder: No HX Cerebrovascular Accident: No Hx Seizures: No Hx Transient Ischemic Attacks (TIA): No - HEENT Hx HEENT Disorder: No - Renal Hx Renal Disorder: Yes Hx Kidney Stones: Yes - Endocrine/Metabolic Hx Endocrine Disorders: No Hx Diabetes Mellitus Type 2: No - Hematological/Oncological Hx Blood Disorders: No Hx Anemia: No Hx Cancer: No Hx Shingles: No - Integumentary Hx Dermatological Disorder: No - Musculoskeletal/Rheumatological Hx Musculoskeletal Disorders: No Hx Falls: No - Gastrointestinal Hx Gastrointestinal Disorders: Yes (hernia repair) Hx Gall Bladder Disease: Yes (cholecystectomy) - Genitourinary/Gynecological Hx Genitourinary Disorders: No - Psychiatric Hx Psychophysiologic Disorder: Yes Hx Anxiety: Yes Hx Bipolar Disorder: No Hx Depression: Yes Hx Post Traumatic Stress Disorder: No Hx Schizophrenia: No Hx Substance Use: Yes (marijuana) - Surgical History Hx Cholecystectomy: Yes - Anesthesia Hx Anesthesia: Yes Hx Anesthesia Reactions: No Hx Malignant Hyperthermia: No - Suicidal Assessment Feels Threatened In Home Enviroment: No Family/Social History - Physician Review Nursing Documentation Reviewed: Yes Family/Social History: Unknown Family HX Smoking Status: Heavy Smoker > 10 Cigarettes Daily Hx Alcohol Use: Yes (1 bottle of beer) Hx Substance Use: Yes (marijuana) Substance used: some days Hx Substance Use Treatment: No Allergies/Home Meds Allergies/Adverse Reactions: Allergies No Known Allergies Allergy (Verified 10/10/18 14:24) Home Medications: Home Meds Medication Instructions Recorded Confirmed Cholecalciferol (Vitamin D3) 1 tab PO QWK 09/15/18 09/15/18 [D3-5000 90 mg-5000 Iu] Simvastatin [Zocor] 40 mg PO DAILY 09/15/18 09/15/18 amLODIPine [Norvasc] 10 mg PO DAILY 09/15/18 09/15/18 Review of Systems - Review of Systems Constitutional: absent: Fatigue, Fevers Respiratory: absent: SOB, Cough Cardiovascular: absent: Chest Pain, Palpitations Gastrointestinal: absent: Abdominal Pain, Nausea, Vomiting Genitourinary Male: absent: Dysuria Musculoskeletal: Arthralgias Skin: absent: Rash, Pruritis Neurological: absent: Headache, Dizziness Psychiatric: absent: Anxiety, Depression Physical Exam Vital Signs Reviewed: Yes Vital Signs Temp Pulse Resp BP Pulse Ox 10/10/18 14:28 98.5 F 84 18 126/78 97 Temperature: Afebrile Blood Pressure: Normal Pulse: Regular Respiratory Rate: Normal Appearance: Positive for: Well-Appearing, Non-Toxic, Comfortable Pain Distress: None Mental Status: Positive for: Alert and Oriented X 3 - Systems Exam Head: Present: Atraumatic Mouth: Present: Moist Mucous Membranes Neck: Present: Normal Range of Motion Respiratory/Chest: Present: Clear to Auscultation, Good Air Exchange. No: Respiratory Distress, Accessory Muscle Use Cardiovascular: Present: Regular Rate and Rhythm, Normal S1, S2. No: Murmurs Lower Extremity: Present: Normal ROM, Tenderness (right knee; + ttp over anterior and posterior aspect of the knee; minimal edema without obvious effusion; no erythema; full rom of knee. sensation and distal pulses intact; cap refill <2. ), Neurovascularly Intact, Capillary Refill < 2 s. No: Erythema, Deformity Neurological: Present: GCS=15, Speech Normal Skin: Present: Warm, Dry, Normal Color. No: Rashes Psychiatric: Present: Alert, Oriented x 3 Medical Decision Making ED Course and Treatment: 10/10/18 17:11 Patient nontoxic well-appearing in no distress with stable vital signs X-rays of the knee:no fracture duplex right leg; no DVT verbal report from tech toradol IM Patient was advised to use knee immobilizer and use Crutches given for ambulation I discussed all results with patient advised to followup with the orthopedist for the next 2 days. Return if symptoms worsen persist or new symptoms develop I advised the patient that although the xrays show no fracture; there is still a possibility for ligamentous or tendon injury the patient must see the orthopedist for further evaluation Patient verbalizes understanding of discharge instructions and need for immediate followup. All aspects of this case were discussed the attending of record. Impression: knee pain Motrin every 6 hours as needed for pain Rest, ice, compression, elevation Use crutches for ambulation Followup with the orthopedist within the next 2 days Followup with primary care physician within the next 2 days Return if symptoms worsen persist or if new symptoms develop Reassessment Condition: Re-examined, Improved - RAD Interpretation Radiology Orders: 10/10/18 15:14 KNEE W PATELLA RIGHT 3 VIEW [RAD] Stat DUPLEX LOWER EXTRM VEIN RIGHT [US] Stat - Medication Orders Current Medication Orders: Discontinued Medications Ketorolac Tromethamine (Toradol) 60 mg IM STAT STA Stop: 10/10/18 15:16 Last Admin: 10/10/18 16:40 Dose: 60 mg MAR Pain Assessment Document 10/10/18 16:40 JOL (Rec: 10/10/18 16:47 JOL [id number]) Pain Reassessment Is this a pain reassessment? No Sleep Is patient sleeping during reassessment? No Presence of Pain Presence of Pain Yes Pain Scale Used Protocol: PSCALES Pain Scale Used Numeric Location Pain Location Body Site Knee Description Intensity of Pain at present 5 Pain Behavior Restlessness Facial Grimacing Aggravating Factors ADL's Changing Position IM Administration Charges Document 10/10/18 16:40 JOL (Rec: 10/10/18 16:47 JOL [id number]) Injection Site MAR Injection Site Left Deltoid Charges for Administration # of IM Administrations 1 Disposition/Present on Arrival - Present on Arrival Any Indicators Present on Arrival: No History of DVT/PE: No History of Uncontrolled Diabetes: No Urinary Catheter: No History of Decub. Ulcer: No History Surgical Site Infection Following: None - Disposition Have Diagnosis and Disposition been Completed?: Yes Diagnosis: Knee pain Disposition: HOME/ ROUTINE Disposition Time: 17:13 Patient Plan: Discharge Condition: GOOD Discharge Instructions (ExitCare): Knee Pain Additional Instructions: Motrin every 6 hours as needed for pain Rest, ice, compression, elevation Use crutches for ambulation Followup with the orthopedist within the next 2 days Followup with primary care physician within the next 2 days Return if symptoms worsen persist or if new symptoms develop Prescriptions: Ibuprofen [Motrin] 600 mg PO Q6H PRN #20 tab PRN Reason: pain/fever reduction traMADol [Ultram] 50 mg PO Q6H PRN #6 tab PRN Reason: moderate to severe pain Referrals: Arya Shaikh MD [Primary Care Provider] - Follow up with primary Jann Britton III, MD [Medical Doctor] - Follow up with primary [facility] at [Outside] - Follow up with primary [facility] at [place] [Outside] - Follow up with primary Forms: [employer] (Portuguese), WORK NOTE
[2018-10-10 17:52] VITALS: BP 127/74; PULSE 80; O2SAT 98
== END 2018-10-10 17:20 | disposition home or self-care (01) ==
LOC: ED 14:18
DX: M25.561 Pain in right knee (principal); I10 Essential (primary) hypertension; F17.210 Nicotine dependence, cigarettes, uncomplicated
CPT/HCPCS: 73562; 93971; 96372; 99284; J1885

== ENCOUNTER 2018-11-09 01:42 | Observation (INO) | payer MEDICAID ==
[2018-11-09 01:55] VITALS: BMI 33.4
--- NOTE | 2018-11-09 02:06 | ED PDOC ---
Arrival/HPI - General Chief Complaint: Chest Pain Time Seen by Provider: 11/09/18 01:43 Historian: Patient - History of Present Illness Narrative History of Present Illness (Text): Elaina Echeverria is a 48 year old male, whose past medical history includes hypertension and hyperlipidemia, presents to the Emergency department complaining of midsternal chest pain, for 2 hours. Patient also notes having tingling in his left arm radiating from his chest as well. He notes taking one 81 mg ASA today without much improvement. He also notes mild nausea, but no vomiting. Chest pain is described as a throbbing, non-radiating to the back and not tearing like. No pleuritic type chest pain. No fall or trauma Patient denies any headache, dizziness, shortness of breath, fevers, chills, dyspnea on exertion, cough, abdominal pain, vomiting, diarrhea, back pain, neck pain, or any other complaint. Time/Duration: 1-3 hours Symptom Onset: Gradual Symptom Course: Unchanged Activities at Onset: Light Context: Home Past Medical History - Provider Review Nursing Documentation Reviewed: Yes - Infectious Disease Hx of Infectious Diseases: None - Tetanus Immunization Tetanus Immunization: Unknown - Cardiac Hx Cardiac Disorders: Yes Hx Hypertension: Yes - Pulmonary Hx Respiratory Disorders: Yes Hx Asthma: Yes Hx Chronic Obstructive Pulmonary Disease (COPD): Yes Hx Pneumonia: No Hx Sleep Apnea: No - Neurological Hx Neurological Disorder: No - HEENT Hx HEENT Disorder: No - Renal Hx Renal Disorder: Yes Hx Kidney Stones: Yes - Endocrine/Metabolic Hx Endocrine Disorders: No Hx Diabetes Mellitus Type 2: No - Hematological/Oncological Hx Blood Disorders: No Hx Anemia: No Hx Cancer: No Hx Shingles: No - Integumentary Hx Dermatological Disorder: No - Musculoskeletal/Rheumatological Hx Musculoskeletal Disorders: No Hx Falls: No - Gastrointestinal Hx Gastrointestinal Disorders: Yes (hernia repair) Hx Gall Bladder Disease: Yes - Genitourinary/Gynecological Hx Genitourinary Disorders: No - Psychiatric Hx Psychophysiologic Disorder: Yes Hx Anxiety: Yes Hx Bipolar Disorder: No Hx Depression: Yes Hx Post Traumatic Stress Disorder: No Hx Schizophrenia: No Hx Substance Use: No (marijuana) - Surgical History Hx Cholecystectomy: Yes - Anesthesia Hx Anesthesia: Yes Hx Anesthesia Reactions: No Hx Malignant Hyperthermia: No - Suicidal Assessment Feels Threatened In Home Enviroment: No Family/Social History - Physician Review Nursing Documentation Reviewed: Yes Family/Social History: No Known Family HX Smoking Status: Heavy Smoker > 10 Cigarettes Daily Hx Alcohol Use: Yes (1 bottle of beer) Frequency of alcohol use: Daily Hx Substance Use: No (marijuana) Substance used: some days Hx Substance Use Treatment: No Allergies/Home Meds Allergies/Adverse Reactions: Allergies No Known Allergies Allergy (Verified 10/10/18 14:24) Home Medications: Home Meds Medication Instructions Recorded Confirmed Cholecalciferol (Vitamin D3) 1 tab PO QWK 09/15/18 09/15/18 [D3-5000 90 mg-5000 Iu] Simvastatin [Zocor] 40 mg PO DAILY 09/15/18 09/15/18 amLODIPine [Norvasc] 10 mg PO DAILY 09/15/18 09/15/18 Review of Systems - Physician Review All systems were reviewed & negative as marked: Yes - Review of Systems Constitutional: absent: Fatigue, Weight Change, Fevers, Night Sweats Eyes: absent: Vision Changes, Photophobia, Eye Pain ENT: absent: Hearing Changes, Tinnitus, TMJ Pain Respiratory: absent: SOB Cardiovascular: Chest Pain Gastrointestinal: Nausea. absent: Abdominal Pain, Stool Changes, Constipation, Diarrhea, Vomiting, Appetite Changes, Hematochezia Genitourinary Male: absent: Dysuria, Frequency Musculoskeletal: absent: Back Pain, Neck Pain Skin: absent: Rash Neurological: absent: Headache, Dizziness, Focal Weakness, Gait Changes Physical Exam Vital Signs Reviewed: Yes Vital Signs Temp Pulse Pulse Resp BP BP Pulse Ox 11/09/18 02:01 90 133/89 11/09/18 01:55 98.6 F 92 H 16 133/89 97 Temperature: Afebrile Blood Pressure: Normal Pulse: Regular Respiratory Rate: Normal Appearance: Positive for: Well-Appearing, Non-Toxic, Comfortable Pain Distress: None Mental Status: Positive for: Alert and Oriented X 3 - Systems Exam Head: Present: Atraumatic, Normocephalic Pupils: Present: PERRL Extroacular Muscles: Present: EOMI Conjunctiva: Present: Normal Ears: Present: Normal Mouth: Present: Moist Mucous Membranes Neck: Present: Normal Range of Motion. No: Meningeal Signs, MIDLINE TENDERNESS Respiratory/Chest: Present: Clear to Auscultation, Good Air Exchange. No: Respiratory Distress, Accessory Muscle Use Cardiovascular: Present: Regular Rate and Rhythm, Normal S1, S2. No: Murmurs Abdomen: No: Tenderness, Distention, Peritoneal Signs Back: Present: Normal Inspection. No: CVA Tenderness, Midline Tenderness Upper Extremity: Present: Normal Inspection. No: Cyanosis, Edema Lower Extremity: Present: Normal Inspection. No: Edema Neurological: Present: GCS=15, CN II-XII Intact, Speech Normal Skin: Present: Warm, Dry, Normal Color. No: Rashes Psychiatric: Present: Alert, Oriented x 3, Normal Insight, Normal Concentration Medical Decision Making ED Course and Treatment: 11/09/18 02:38 Impression: 48 year old male presents with chest pain. Chest pain radiating to L arm, without any pleuritic type pain or sob. No fall or trauma. No fevers, chills or night sweats. No leg swelling, hemoptysis or history of blood clots. Heart Score: age: 1 RF: 2 Story: 1 EK Trop: pending Plan: -- EKG -- CMP, Mg, BNP, Trop -- CBC -- Chest X-ray -- Tylenol -- Reassess and disposition Prior Visits: Notes and results from previous visits were reviewed. Progress Notes: 11/09/18 02:52 EKG Reviewed by me, shows: NSR @ 96bpm No STEMI 11/09/18 04:20 labs reviewed, largely unremarkable xray reviewed, unremarkable, no widened mediastinum, ASA ordered appreciate consult w/ Dr. Pulido: to admit to hospitalist service Pt in NAD, Agreeable to plan - Scribe Statement The provider has reviewed the documentation as recorded by the Ousmane Johns Provider Scribe Attestation: All medical record entries made by the Scribe were at my direction and personally dictated by me. I have reviewed the chart and agree that the record accurately reflects my personal performance of the history, physical exam, medical decision making, and the department course for this patient. I have also personally directed, reviewed, and agree with the discharge instructions and disposition.' Disposition/Present on Arrival - Present on Arrival Any Indicators Present on Arrival: No History of DVT/PE: No History of Uncontrolled Diabetes: No Urinary Catheter: No History of Decub. Ulcer: No History Surgical Site Infection Following: None - Disposition Have Diagnosis and Disposition been Completed?: Yes Diagnosis: Chest pain Disposition Time: 04:17 Patient Problems: Current Active Problems Problem Status Onset Chest pain Acute Condition: STABLE Discharge Instructions (ExitCare): Chest Pain (ED) Forms: [facility] ([place])
[2018-11-09 02:32] LABS: ALB/GLOB RATIO 1.4 (1.1-1.8); ALBUMIN 4.4 g/dL (3.0-4.8); ALT/SGPT 21 U/L (7-56); AST/SGOT 29 U/L (17-59); BASO # 0.01 K/mm3 (0.0-2.0); BASO % 0.2 % (0.0-3.0); BLOOD UREA NITROGEN 21 mg/dL (7-21); CALCIUM 9.5 mg/dL (8.4-10.5); EOS # 0.1 (0.0-0.7); GFR NON-AFRICAN AMERICAN > 60; HEMOGLOBIN 12.4 g/dL (14.0-18.0); LYMPH # 1.8 (1.2-3.4); LYMPH % 29.7 % (22.0-35.0); MEAN CELL VOLUME 96.4 fl (80.0-105.0); MEAN CORPUSCULAR HGB CONC 33.2 g/dl (31.0-37.0); MONO # 0.4 (0.1-0.6); RBC 3.87 10^6/uL (3.5-6.1); RED CELL DISTRIBUTION WIDTH 12.5 % (11.5-14.5)
[2018-11-09 02:43] LABS: B-TYPE NATRIURETIC PEPTIDE 62.3 pg/mL (0-450); TROPONIN I < 0.01 ng/mL
--- NOTE | 2018-11-09 04:46 | CP.PCM.HP ---
<NiloFidencio - Last Filed: 11/09/18 05:43> History of Present Illness - History of Present Illness History of Present Illness: Fidencio Corcoran D.O PGY-1. History and Physical for Dr Luis Felipe:midsternal chest pain for 1 hour 48 y/o male with PMH of HTN, HLD, asthma, COPD, alcohol abuse presents to ED with 1 hour of right sternal border chest pain, sharp, intermittent, 7-8/10, positional, increased with inspiration, decreased by rest. Pain is associated with palpitations, nausea, diaphoresis, numbness/spasm in his left hand and shoulder. Patient reported his asthma is intermitted, mild, uses inhalers occasionally, no hospital admissions for COPD exacerbations, never intubated. Patient admits to drinking 1/2 pint of alcohol/day, last drink yesterday. No withdrawal symptoms of tremors, diaphoresis, muscle aches, headache reported. No hemoptysis, hematemesis, blood per rectum., headache, dizziness, leg swelling. Last seen by his PMD Dr Elaine last month. aS PER sep, patient was admitted 02/2018 for similar symptoms. Admitted for chest pain to r/o ACS. Was seen by cardiology who recommended echo and stress test but patient signed AMA before doing any work up. 12 points ROS reviewed and otherwise negative PMH: HTN, HLD, asthma, COPD, herniated lumbar desk PSH: cholecystectomy, umbilical hernia, inguinal hernia repair SocH: smokes 1/2-1 PPD x30 years, 1/2 pint of alcohol/day, occasional marijuana use FH: both parents at age late 50s MEDS: amlodipine, asa, simvastatin, ventolin prn ALL: NKDA PMD: Dr Elaine PHARMACY: Welcome Present on Admission - Present on Admission Any Indicators Present on Admission: No Past Patient History - Infectious Disease Hx of Infectious Diseases: None - Tetanus Immunizations Tetanus Immunization: Unknown - Past Medical History & Family History Past Medical History?: Yes - Past Social History Smoking Status: Heavy Smoker > 10 Cigarettes Daily - CARDIAC Hx Cardiac Disorders: Yes Hx Hypertension: Yes - PULMONARY Hx Respiratory Disorders: Yes Hx Asthma: Yes Hx Chronic Obstructive Pulmonary Disease (COPD): Yes Hx Pneumonia: No Hx Sleep Apnea: No - NEUROLOGICAL Hx Neurological Disorder: No - HEENT Hx HEENT Problems: No - RENAL Hx Chronic Kidney Disease: Yes Hx Kidney Stones: Yes - ENDOCRINE/METABOLIC Hx Endocrine Disorders: No Hx Diabetes Mellitus Type 2: No - HEMATOLOGICAL/ONCOLOGICAL Hx Blood Disorders: No Hx Anemia: No Hx Cancer: No Hx Shingles: No - INTEGUMENTARY Hx Dermatological Problems: No - MUSCULOSKELETAL/RHEUMATOLOGICAL Hx Musculoskeletal Disorders: No Hx Falls: No - GASTROINTESTINAL Hx Gastrointestinal Disorders: Yes (hernia repair) Hx Gall Bladder Disease: Yes - GENITOURINARY/GYNECOLOGICAL Hx Genitourinary Disorders: No - PSYCHIATRIC Hx Psychophysiologic Disorder: Yes Hx Anxiety: Yes Hx Bipolar Disorder: No Hx Depression: Yes Hx Post Traumatic Stress Disorder: No Hx Schizophrenia: No Hx Substance Use: No (marijuana) - SURGICAL HISTORY Hx Cholecystectomy: Yes - ANESTHESIA Hx Anesthesia: Yes Hx Anesthesia Reactions: No Hx Malignant Hyperthermia: No Meds Allergies/Adverse Reactions: Allergies Allergy/AdvReac Type Severity Reaction Status Date / Time No Known Allergies Allergy Verified 10/10/18 14:24 Physical Exam - Constitutional Appears: Well, Non-toxic, No Acute Distress - Head Exam Head Exam: ATRAUMATIC, NORMAL INSPECTION, NORMOCEPHALIC - Eye Exam Eye Exam: EOMI, Normal appearance, PERRL Pupil Exam: NORMAL ACCOMODATION, PERRL - ENT Exam ENT Exam: Mucous Membranes Moist, Normal Exam - Neck Exam Neck exam: Positive for: Full Rom, Normal Inspection. Negative for: Lymphadenopathy, Tenderness, Thyromegaly - Respiratory Exam Respiratory Exam: Clear to Auscultation Bilateral, NORMAL BREATHING PATTERN. absent: Rales, Rhonchi, Wheezes Additional comments: tender to palpate right sternal border - Cardiovascular Exam Cardiovascular Exam: REGULAR RHYTHM, +S1, +S2 - GI/Abdominal Exam GI & Abdominal Exam: Normal Bowel Sounds, Soft. absent: Tenderness - Extremities Exam Extremities exam: Positive for: full ROM, normal capillary refill, normal inspection, pedal pulses present. Negative for: calf tenderness - Back Exam Back exam: NORMAL INSPECTION. absent: CVA tenderness (L), CVA tenderness (R) - Neurological Exam Neurological exam: Alert, CN II-XII Intact, Normal Gait, Oriented x3, Reflexes Normal - Psychiatric Exam Psychiatric exam: Normal Affect, Normal Mood - Skin Skin Exam: Dry, Intact, Normal Color, Warm Results - Vital Signs Recent Vital Signs: Last Vital Signs Temp 98.6 F 11/09/18 01:55 Pulse 81 11/09/18 03:48 Resp 17 11/09/18 03:48 BP 125/47 L 11/09/18 03:48 Pulse Ox 95 11/09/18 03:48 - Labs Result Diagrams: 11/09/18 02:10 11/09/18 02:10 Labs: Laboratory Results - last 24 hr 11/09/18 11/09/18 02:10 02:10 WBC 6.0 RBC 3.87 Hgb 12.4 L Hct 37.3 L MCV 96.4 MCH 32.0 MCHC 33.2 RDW 12.5 Plt Count 244 MPV 10.0 Neut % (Auto) 62.1 Lymph % (Auto) 29.7 [place] % (Auto) 6.0 Eos % (Auto) 2.0 Baso % (Auto) 0.2 Lymph # (Auto) 1.8 [place] # (Auto) 0.4 Eos # (Auto) 0.1 Baso # (Auto) 0.01 Absolute Neuts (auto) 3.70 Sodium 139 Potassium 3.6 Chloride 105 Carbon Dioxide 27 Anion Gap 11 BUN 21 Creatinine 1.1 Est GFR ( Amer) > 60 Est GFR (Non-Af Amer) > 60 Random Glucose 103 Calcium 9.5 Magnesium 2.1 Total Bilirubin 0.7 AST 29 ALT 21 Alkaline Phosphatase 54 Troponin I < 0.01 NT-Pro-B Natriuret Pep 62.3 Total Protein 7.4 Albumin 4.4 Globulin 3.0 Albumin/Globulin Ratio 1.4 Assessment & Plan - Assessment and Plan (Free Text) Assessment: 48 y/o male with PMH of HTN, HLD, asthma, COPD, presents to ED with 1 hour of right sternal border chest pain,. Trop negative x1, EKG shows no ischemia. Patient is a heavy smoker, alcoholic and has family history of premature CAD. Admitted for chest pain to r/o ACS Plan: Chest pain r/o ACS EKG: NSR@[address]-T changes. repeat EKG in am Troponin negative x1 trend q6h CXR:NAD Nitro 0.4 mg SL x3 q5min prn chest pain echo Cardio consulted, Dr Becker Chronic alcohol use ativan 2 mg ivp prn. symptoms of alcohol withdrawal CIWA protocol banana bag UDS Anemia: H/H 12.4/37.3 f/u iron studies, folate, B12 HTN continue home med Amlodipine 10, asa HLD continue home meds lipitor 10 lipid panel ordered Obesity Weight reduction safety counselor HbA1c Heavy smoker chronic cough related to smoking smoking counseling discussed with patient Nicoderm 14 mg patch Chronic knee pain Tylenol prn Asthma/COPD pulmicort, [place] duoneb prn O2 2L prn SOB PPX GI: pepcid DVT: SCD HHD Case discussed and reviewed with Dr Smith <Rustam Smith - Last Filed: 11/09/18 07:28> Results - Vital Signs Recent Vital Signs: Last Vital Signs Temp 97.6 F 11/09/18 05:13 Pulse 82 11/09/18 05:13 Resp 20 11/09/18 05:13 BP 112/83 11/09/18 05:13 Pulse Ox 96 11/09/18 05:13 - Labs Result Diagrams: 11/09/18 06:00 11/09/18 06:00 Labs: Laboratory Results - last 24 hr 11/09/18 11/09/18 11/09/18 02:10 02:10 06:00 WBC 6.0 RBC 3.87 Hgb 12.4 L Hct 37.3 L MCV 96.4 MCH 32.0 MCHC 33.2 RDW 12.5 Plt Count 244 MPV 10.0 Neut % (Auto) 62.1 Lymph % (Auto) 29.7 [place] % (Auto) 6.0 Eos % (Auto) 2.0 Baso % (Auto) 0.2 Lymph # (Auto) 1.8 [place] # (Auto) 0.4 Eos # (Auto) 0.1 Baso # (Auto) 0.01 Absolute Neuts (auto) 3.70 Sodium 139 137 Potassium 3.6 3.4 L Chloride 105 102 Carbon Dioxide 27 28 Anion Gap 11 11 BUN 21 19 Creatinine 1.1 1.0 Est GFR ( Amer) > 60 > 60 Est GFR (Non-Af Amer) > 60 > 60 Random Glucose 103 96 Calcium 9.5 9.3 Phosphorus 3.7 Magnesium 2.1 2.1 Iron TIBC % Saturation Total Bilirubin 0.7 0.8 AST 29 29 ALT 21 17 Alkaline Phosphatase 54 56 Troponin I < 0.01 NT-Pro-B Natriuret Pep 62.3 Total Protein 7.4 7.3 Albumin 4.4 4.2 Globulin 3.0 3.1 Albumin/Globulin Ratio 1.4 1.4 Triglycerides 276 H Cholesterol 168 LDL Cholesterol Direct 82 HDL Cholesterol 47 Alcohol, Quantitative 11/09/18 11/09/18 11/09/18 06:00 06:00 06:00 WBC 5.5 RBC 3.89 Hgb 12.2 L Hct 37.7 L MCV 96.9 MCH 31.4 MCHC 32.4 RDW 12.6 Plt Count 239 MPV 10.2 Neut % (Auto) 54.4 Lymph % (Auto) 38.6 H [place] % (Auto) 4.8 Eos % (Auto) 2.0 Baso % (Auto) 0.2 Lymph # (Auto) 2.1 [place] # (Auto) 0.3 Eos # (Auto) 0.1 Baso # (Auto) 0.01 Absolute Neuts (auto) 2.98 Sodium Potassium Chloride Carbon Dioxide Anion Gap BUN Creatinine Est GFR ( Amer) Est GFR (Non-Af Amer) Random Glucose Calcium Phosphorus Magnesium Iron 67 TIBC 287 % Saturation 23 Total Bilirubin AST ALT Alkaline Phosphatase Troponin I NT-Pro-B Natriuret Pep Total Protein Albumin Globulin Albumin/Globulin Ratio Triglycerides Cholesterol LDL Cholesterol Direct HDL Cholesterol Alcohol, Quantitative < 10 Attending/Attestation - Attestation I have personally seen and examined this patient.: Yes I have fully participated in the care of the patient.: Yes I have reviewed all pertinent clinical information: Yes Notes (Text): 11/09/18 07:27 Seen and examined. Discussed with resident. Exam is significant for reproducible Chest tenderness right chest. Cardiology to evaluate.
[2018-11-09] MEDS ORDERED: Albuterol-Ipratrop 3 mg / 0.5 (3 ml) UD IH PRN (04:59)
[2018-11-09] MEDS ORDERED: Folic Acid 1 MG, Thiamine 100 MG, Multivitamin (MVI) 10 ML in Dextrose 5% In Water 1,00... IV SCH (05:45)
[2018-11-09 06:23] VITALS: RESP 20
[2018-11-09 06:25] VITALS: BP 112/83; PULSE 82; O2SAT 96
[2018-11-09 06:49] LABS: BASO # 0.01 K/mm3 (0.0-2.0); BASO % 0.2 % (0.0-3.0); EOS # 0.1 (0.0-0.7); HEMOGLOBIN 12.2 g/dL (14.0-18.0); LYMPH # 2.1 (1.2-3.4); LYMPH % 38.6 % (22.0-35.0); MEAN CELL VOLUME 96.9 fl (80.0-105.0); MEAN CORPUSCULAR HEMOGLOBIN 31.4 pg (25.0-35.0); MEAN CORPUSCULAR HGB CONC 32.4 g/dl (31.0-37.0); MEAN PLATELET VOLUME 10.2 fl (7.0-11.0); MONO # 0.3 (0.1-0.6); MONO % 4.8 % (1.0-6.0); RBC 3.89 10^6/uL (3.5-6.1); RED CELL DISTRIBUTION WIDTH 12.6 % (11.5-14.5); WHITE BLOOD COUNT 5.5 10^3/uL (4.5-11.0)
[2018-11-09 07:13] LABS: IRON 67 ug/dL (45-180)
[2018-11-09 07:16] LABS: ALB/GLOB RATIO 1.4 (1.1-1.8); ALBUMIN 4.2 g/dL (3.0-4.8); ALT/SGPT 17 U/L (7-56); AST/SGOT 29 U/L (17-59); BLOOD UREA NITROGEN 19 mg/dL (7-21); CALCIUM 9.3 mg/dL (8.4-10.5); GFR NON-AFRICAN AMERICAN > 60; HDL CHOLESTEROL 47 mg/dL (29-60)
[2018-11-09 07:23] LABS: % IRON SATURATION 23 % (20-55); TOTAL IRON BINDING CAPACITY 287 ug/dL (261-462)
[2018-11-09 07:27] LABS: LDL CHOLESTEROL 82 mg/dL (0-129)
[2018-11-09] MEDS ORDERED: Potassium Chloride 20 mEq ER Tab PO ONE (07:56)
[2018-11-09] MEDS ORDERED: Arformoterol 15 mcg/2 ml Inh Sol IH SCH (08:00)
[2018-11-09] MEDS ORDERED: Budesonide 0.5 mg/2 ml Inhal Susp UD IH SCH (08:00)
--- NOTE | 2018-11-09 08:21 | CP.PCM.CON ---
History of Present Illness - History of Present Illness History of Present Illness: Awake, alert, no distress Reason for consultation: Cardiac evaluation of chest pain Brief history of present illness: A 48 year old male who came in to the ER due to chest pain. Chest pain described as right sternal border chest pain, sharp, intermittent, positional, increased with inspiration, decreased by rest. Pain is associated with palpitations, nausea, diaphoresis, numbness/spasm in his left hand and shoulder. History of hypertension, hyperlipidemia,asthma, COPD, cholecystectomy, umbilical hernia, inguinal hernia repair,herniated lumbar disk, smokes 1/2-1 PPD x30 years, 1/2 pint of alcohol/day, occasional marijuana use. He was admitted last year with similar symptoms however work up was not done because he went home signed against medical advice and no follow up. Seen and examined by me and Dr. Murillo Review of Systems - Review of Systems All systems: reviewed and no additional remarkable complaints except Review of Systems: as per HPI Past Patient History - Infectious Disease Hx of Infectious Diseases: None - Tetanus Immunizations Tetanus Immunization: Unknown - Past Medical History & Family History Past Medical History?: Yes - Past Social History Smoking Status: Heavy Smoker > 10 Cigarettes Daily - CARDIAC Hx Cardiac Disorders: Yes Hx Hypertension: Yes - PULMONARY Hx Respiratory Disorders: Yes Hx Asthma: Yes Hx Chronic Obstructive Pulmonary Disease (COPD): Yes Hx Pneumonia: No Hx Sleep Apnea: No - NEUROLOGICAL Hx Neurological Disorder: No - HEENT Hx HEENT Problems: No - RENAL Hx Chronic Kidney Disease: Yes Hx Kidney Stones: Yes - ENDOCRINE/METABOLIC Hx Endocrine Disorders: No Hx Diabetes Mellitus Type 2: No - HEMATOLOGICAL/ONCOLOGICAL Hx Blood Disorders: No Hx Anemia: No Hx Cancer: No Hx Shingles: No - INTEGUMENTARY Hx Dermatological Problems: No - MUSCULOSKELETAL/RHEUMATOLOGICAL Hx Musculoskeletal Disorders: No Hx Falls: No - GASTROINTESTINAL Hx Gastrointestinal Disorders: Yes (hernia repair) Hx Gall Bladder Disease: Yes - GENITOURINARY/GYNECOLOGICAL Hx Genitourinary Disorders: No - PSYCHIATRIC Hx Psychophysiologic Disorder: Yes Hx Anxiety: Yes Hx Bipolar Disorder: No Hx Depression: Yes Hx Post Traumatic Stress Disorder: No Hx Schizophrenia: No Hx Substance Use: No (marijuana) - SURGICAL HISTORY Hx Cholecystectomy: Yes - ANESTHESIA Hx Anesthesia: Yes Hx Anesthesia Reactions: No Hx Malignant Hyperthermia: No Meds Allergies/Adverse Reactions: Allergies Allergy/AdvReac Type Severity Reaction Status Date / Time No Known Allergies Allergy Verified 10/10/18 14:24 - Medications Medications: Current Medications Acetaminophen (Tylenol 325mg Tab) 650 mg PO Q4H PRN PRN Reason: Pain, moderate (4-7) Albuterol/Ipratropium (Duoneb 3 Mg/0.5 Mg (3 Ml) Ud) 3 ml IH Q2H PRN PRN Reason: Shortness of Breath Amlodipine Besylate (Norvasc) 10 mg PO DAILY [facility] Arformoterol Tartrate (Brovana) 15 mcg IH [id number] [facility] Last Admin: 11/09/18 07:46 Dose: 15 mcg Aspirin (Ecotrin) 81 mg PO DAILY [facility] Atorvastatin Calcium (Lipitor) 40 mg PO DIN [facility] Budesonide (Pulmicort Respules) 0.5 mg IH [id number] [facility] Last Admin: 11/09/18 07:46 Dose: 0.5 mg Famotidine (Pepcid) 20 mg PO 1000,2200 [facility] Folic Acid 1 mg/ Thiamine HCl 100 mg/ Multivitamins/Vitamin C 10 ml/ Dextrose 1,011.2 mls @ 100 mls/hr IV .[id number] [facility] Last Admin: 11/09/18 06:00 Dose: 100 mls/hr Lorazepam (Ativan) 2 mg IVP Q6H PRN; Protocol PRN Reason: Symptoms of alcohol withdrawl Nicotine (Nicoderm Cq) 1 patch TD DAILY [facility] Last Admin: 11/09/18 06:00 Dose: 1 patch Ondansetron HCl (Zofran Inj) 4 mg IVP Q6H PRN PRN Reason: Nausea/Vomiting Physical Exam - Constitutional Appears: Non-toxic, No Acute Distress - Head Exam Head Exam: NORMAL INSPECTION, NORMOCEPHALIC - Eye Exam Eye Exam: Normal appearance Pupil Exam: NORMAL ACCOMODATION - ENT Exam ENT Exam: Mucous Membranes Moist, Normal Exam - Respiratory Exam Respiratory Exam: Decreased Breath Sounds, Clear to Auscultation Bilateral, NORMAL BREATHING PATTERN - Cardiovascular Exam Cardiovascular Exam: REGULAR RHYTHM, +S1, +S2 Additional comments: denies chest pain now - GI/Abdominal Exam GI & Abdominal Exam: Normal Bowel Sounds, Soft - Neurological Exam Neurological exam: Alert, Oriented x3 - Psychiatric Exam Psychiatric exam: Normal Affect, Normal Mood - Skin Skin Exam: Dry, Normal Color, Warm Results - Vital Signs Recent Vital Signs: Last Vital Signs Temp 97.6 F 11/09/18 05:13 Pulse 82 11/09/18 05:13 Resp 20 11/09/18 05:13 BP 112/83 11/09/18 05:13 Pulse Ox 96 11/09/18 05:13 - Labs Result Diagrams: 11/09/18 06:00 11/09/18 06:00 Labs: Laboratory Results - last 24 hr 11/09/18 11/09/18 11/09/18 02:10 02:10 06:00 WBC 6.0 RBC 3.87 Hgb 12.4 L Hct 37.3 L MCV 96.4 MCH 32.0 MCHC 33.2 RDW 12.5 Plt Count 244 MPV 10.0 Neut % (Auto) 62.1 Lymph % (Auto) 29.7 [place] % (Auto) 6.0 Eos % (Auto) 2.0 Baso % (Auto) 0.2 Lymph # (Auto) 1.8 [place] # (Auto) 0.4 Eos # (Auto) 0.1 Baso # (Auto) 0.01 Absolute Neuts (auto) 3.70 Sodium 139 137 Potassium 3.6 3.4 L Chloride 105 102 Carbon Dioxide 27 28 Anion Gap 11 11 BUN 21 19 Creatinine 1.1 1.0 Est GFR ( Amer) > 60 > 60 Est GFR (Non-Af Amer) > 60 > 60 Random Glucose 103 96 Calcium 9.5 9.3 Phosphorus 3.7 Magnesium 2.1 2.1 Iron TIBC % Saturation Total Bilirubin 0.7 0.8 AST 29 29 ALT 21 17 Alkaline Phosphatase 54 56 Troponin I < 0.01 NT-Pro-B Natriuret Pep 62.3 Total Protein 7.4 7.3 Albumin 4.4 4.2 Globulin 3.0 3.1 Albumin/Globulin Ratio 1.4 1.4 Triglycerides 276 H Cholesterol 168 LDL Cholesterol Direct 82 HDL Cholesterol 47 TSH 3rd Generation Alcohol, Quantitative 11/09/18 11/09/18 11/09/18 06:00 06:00 06:00 WBC 5.5 RBC 3.89 Hgb 12.2 L Hct 37.7 L MCV 96.9 MCH 31.4 MCHC 32.4 RDW 12.6 Plt Count 239 MPV 10.2 Neut % (Auto) 54.4 Lymph % (Auto) 38.6 H [place] % (Auto) 4.8 Eos % (Auto) 2.0 Baso % (Auto) 0.2 Lymph # (Auto) 2.1 [place] # (Auto) 0.3 Eos # (Auto) 0.1 Baso # (Auto) 0.01 Absolute Neuts (auto) 2.98 Sodium Potassium Chloride Carbon Dioxide Anion Gap BUN Creatinine Est GFR ( Amer) Est GFR (Non-Af Amer) Random Glucose Calcium Phosphorus Magnesium Iron 67 TIBC 287 % Saturation 23 Total Bilirubin AST ALT Alkaline Phosphatase Troponin I NT-Pro-B Natriuret Pep Total Protein Albumin Globulin Albumin/Globulin Ratio Triglycerides Cholesterol LDL Cholesterol Direct HDL Cholesterol TSH 3rd Generation 3.41 Alcohol, Quantitative < 10 Assessment & Plan - Assessment and Plan (Free Text) Assessment: A 48 year old male who came in to the ER due to chest pain. Chest pain described as right sternal border chest pain, sharp, intermittent, positional, increased with inspiration, decreased by rest. Pain is associated with palpitations, nausea, diaphoresis, numbness/spasm in his left hand and shoulder. History of hypertension, hyperlipidemia,asthma, COPD, cholecystectomy, umbilical hernia, inguinal hernia repair,herniated lumbar disk, smokes 1/2-1 PPD x30 years, 1/2 pint of alcohol/day, occasional marijuana use. He was admitted last year with similar symptoms however work up was not done because he went home signed against medical advice and no follow up. Troponin 0.01, will repeat another level, EKG showed NSR. Atypical chest pain. Will order echo to evaluate LV function.S tress test today to rule out ischemia. Keep NPO. Plan: No distress For echo today For Stress test today Keep NPO On Norvasc 10 mg daily, ASA 81 mg daily, Lipitor 40 mg daily Nicoderm patch daily Continue current treatment Continue current medications Lifestyle modifications Weight reduction Smoking cessation Abstinence from alcohol TSH,lipid profile,hgbA1c Further recommendations during hospital course Will follow up Plan and treatment discussed with Dr. Murillo Thank you Dr. Peoples for the opportunity of taking care of Juwan Delaney - Date & Time Date: 11/09/18 Time: 06:30
[2018-11-09 08:30] VITALS: TEMP 97.5
--- NOTE | 2018-11-09 09:13 | CARD ---
APPROVED REPORT Date of service: 11/09/2018 EKG Measurement Heart [id number] <Conclusion> Sinus rhythm with premature atrial complexes with aberrant conduction Nonspecific T wave abnormality Prolonged QT Abnormal ECG
--- NOTE | 2018-11-09 09:16 | CARD ---
APPROVED REPORT Date of service: 11/09/2018 EKG Measurement Heart [id number] <Conclusion> Sinus rhythm with premature atrial complexes with aberrant conduction Minimal voltage criteria for LVH, may be normal variant Prolonged QT Abnormal ECG
--- NOTE | 2018-11-09 09:33 | RAD ---
Date of service: 11/09/2018 HISTORY: cp COMPARISON: 02/15/2018 TECHNIQUE: 1 view obtained. FINDINGS: LUNGS: No active pulmonary disease. PLEURA: No significant pleural effusion identified, no pneumothorax apparent. CARDIOVASCULAR: No aortic atherosclerotic calcification present. Normal cardiac size. No pulmonary vascular congestion. OSSEOUS STRUCTURES: No significant abnormalities. VISUALIZED UPPER ABDOMEN: Normal. OTHER FINDINGS: None. IMPRESSION: No active disease.
--- NOTE | 2018-11-09 12:34 | CP.PCM.DIS ---
<Parish Brar - Last Filed: 11/09/18 12:31> Provider - Provider Date of Admission: 11/09/18 03:59 Attending physician: Zehra Thomas MD Primary care physician: Zak Elaine MD Consults: 11/09/18 04:57 Physician Consult Routine Comment: Consulting Provider: Zehra Becker Consulting Physician: Zehra Becker Reason for Consult: CP r/o ACS Time Spent in preparation of Discharge (in minutes): 40 Diagnosis - Discharge Diagnosis (1) Chest pain Status: Acute Hospital Course - Lab Results Lab Results: Most Recent Lab Values WBC 5.5 10^3/uL (4.5-11.0) 11/09/18 06:00 RBC 3.89 10^6/uL (3.5-6.1) 11/09/18 06:00 Hgb 12.2 g/dL (14.0-18.0) L 11/09/18 06:00 Hct 37.7 % (42.0-52.0) L 11/09/18 06:00 MCV 96.9 fl (80.0-105.0) 11/09/18 06:00 MCH 31.4 pg (25.0-35.0) 11/09/18 06:00 MCHC 32.4 g/dl (31.0-37.0) 11/09/18 06:00 RDW 12.6 % (11.5-14.5) 11/09/18 06:00 Plt Count 239 10^3/uL (120.0-450.0) 11/09/18 06:00 MPV 10.2 fl (7.0-11.0) 11/09/18 06:00 Neut % (Auto) 54.4 % (50.0-68.0) 11/09/18 06:00 Lymph % (Auto) 38.6 % (22.0-35.0) H 11/09/18 06:00 Pi[place] % (Auto) 4.8 % (1.0-6.0) 11/09/18 06:00 Eos % (Auto) 2.0 % (1.5-5.0) 11/09/18 06:00 Baso % (Auto) 0.2 % (0.0-3.0) 11/09/18 06:00 Lymph # (Auto) 2.1 (1.2-3.4) 11/09/18 06:00 [place] # (Auto) 0.3 (0.1-0.6) 11/09/18 06:00 Eos # (Auto) 0.1 (0.0-0.7) 11/09/18 06:00 Baso # (Auto) 0.01 K/mm3 (0.0-2.0) 11/09/18 06:00 Absolute Neuts (auto) 2.98 (1.4-6.5) 11/09/18 06:00 Sodium 137 mmol/L (132-148) 11/09/18 06:00 Potassium 3.4 mmol/L (3.6-5.0) L 11/09/18 06:00 Chloride 102 mmol/L (98-107) 11/09/18 06:00 Carbon Dioxide 28 mmol/L (21-33) 11/09/18 06:00 Anion Gap 11 (10-20) 11/09/18 06:00 BUN 19 mg/dL (7-21) 11/09/18 06:00 Creatinine 1.0 mg/dl (0.8-1.5) 11/09/18 06:00 Est GFR ( Amer) > 60 11/09/18 06:00 Est GFR (Non-Af Amer) > 60 11/09/18 06:00 Random Glucose 96 mg/dL (70-110) 11/09/18 06:00 Hemoglobin A1c 5.3 % (4.2-6.5) 11/09/18 06:00 Calcium 9.3 mg/dL (8.4-10.5) 11/09/18 06:00 Phosphorus 3.7 mg/dL (2.5-4.5) 11/09/18 06:00 Magnesium 2.1 mg/dL (1.7-2.2) 11/09/18 06:00 Iron 67 ug/dL (45-180) 11/09/18 06:00 TIBC 287 ug/dL (261-462) 11/09/18 06:00 % Saturation 23 % (20-55) 11/09/18 06:00 Total Bilirubin 0.8 mg/dL (0.2-1.3) 11/09/18 06:00 AST 29 U/L (17-59) 11/09/18 06:00 ALT 17 U/L (7-56) 11/09/18 06:00 Alkaline Phosphatase 56 U/L (38-126) 11/09/18 06:00 Troponin I < 0.01 ng/mL 11/09/18 06:00 NT-Pro-B Natriuret Pep 62.3 pg/mL (0-450) 11/09/18 02:10 Total Protein 7.3 g/dL (5.8-8.3) 11/09/18 06:00 Albumin 4.2 g/dL (3.0-4.8) 11/09/18 06:00 Globulin 3.1 gm/dL 11/09/18 06:00 Albumin/Globulin Ratio 1.4 (1.1-1.8) 11/09/18 06:00 Triglycerides 276 mg/dL (35-160) H 11/09/18 06:00 Cholesterol 168 mg/dL (130-200) 11/09/18 06:00 LDL Cholesterol Direct 82 mg/dL (0-129) 11/09/18 06:00 HDL Cholesterol 47 mg/dL (29-60) 11/09/18 06:00 TSH 3rd Generation 3.41 mIU/mL (0.46-4.68) 11/09/18 06:00 Alcohol, Quantitative < 10 mg/dL (0-10) 11/09/18 06:00 - Hospital Course Hospital Course: 48 y/o male with PMH of HTN, HLD, asthma, COPD, alcohol abuse presented to ED with 1 hour of right sternal border chest pain, sharp, intermittent, 7-8/10, positional, increased with inspiration, decreased by rest. Pain is associated with palpitations, nausea, diaphoresis, numbness/spasm in his left hand and shoulder. Patient admitted to alcohol and marijuana abuse. Patient has been admitted in the past for chest pain, but AMA before evaluation was complete. Patient was admitted for chest pain to rule out ACS. Patient was seen by cardiology who recommended stress test. However, patient requested to leave AMA prior to stress test. Risks of AMA and benefits of staying were explained in detail, patient elected to leave against medical advice. Patient advised to follow up with his PMD. Discharge Exam - Head Exam Head Exam: NORMAL INSPECTION, NORMOCEPHALIC - Eye Exam Eye Exam: Normal appearance Pupil Exam: NORMAL ACCOMODATION - ENT Exam ENT Exam: Mucous Membranes Moist - Respiratory Exam Respiratory Exam: Clear to PA & Lateral. absent: Rales, Rhonchi, Wheezes - Cardiovascular Exam Cardiovascular Exam: RRR, +S1, +S2. absent: Diastolic murmur, Gallop, Rubs, Systolic Murmur - GI/Abdominal Exam GI & Abdominal Exam: Soft. absent: Distended, Guarding, Rebound, Tenderness - Extremities Exam Extremities exam: normal inspection - Back Exam Back exam: NORMAL INSPECTION - Neurological Exam Neurological exam: Alert, Oriented x3 - Psychiatric Exam Psychiatric exam: Normal Affect, Normal Mood - Skin Skin Exam: Normal Color, Warm Discharge Plan - Follow Up Plan Condition: STABLE Disposition: AGAINST MEDICAL ADVICE Instructions: Chest Pain (ED), Chest Pain (DC), Chest Pain (GEN) Referrals: Zak Elaine [Primary Care Provider] - Follow up with primary <Zehra Thomas - Last Filed: 11/10/18 15:52> Provider - Provider Date of Admission: 11/09/18 03:59 Attending physician: Zehra Thomas MD Primary care physician: Zak Elaine MD Consults: 11/09/18 04:57 Physician Consult Routine Comment: Consulting Provider: Zehra Becker Consulting Physician: Zehra Becker Reason for Consult: CP r/o ACS Hospital Course - Lab Results Lab Results: Most Recent Lab Values WBC 5.5 10^3/uL (4.5-11.0) 11/09/18 06:00 RBC 3.89 10^6/uL (3.5-6.1) 11/09/18 06:00 Hgb 12.2 g/dL (14.0-18.0) L 11/09/18 06:00 Hct 37.7 % (42.0-52.0) L 11/09/18 06:00 MCV 96.9 fl (80.0-105.0) 11/09/18 06:00 MCH 31.4 pg (25.0-35.0) 11/09/18 06:00 MCHC 32.4 g/dl (31.0-37.0) 11/09/18 06:00 RDW 12.6 % (11.5-14.5) 11/09/18 06:00 Plt Count 239 10^3/uL (120.0-450.0) 11/09/18 06:00 MPV 10.2 fl (7.0-11.0) 11/09/18 06:00 Neut % (Auto) 54.4 % (50.0-68.0) 11/09/18 06:00 Lymph % (Auto) 38.6 % (22.0-35.0) H 11/09/18 06:00 Pi[place] % (Auto) 4.8 % (1.0-6.0) 11/09/18 06:00 Eos % (Auto) 2.0 % (1.5-5.0) 11/09/18 06:00 Baso % (Auto) 0.2 % (0.0-3.0) 11/09/18 06:00 Lymph # (Auto) 2.1 (1.2-3.4) 11/09/18 06:00 [place] # (Auto) 0.3 (0.1-0.6) 11/09/18 06:00 Eos # (Auto) 0.1 (0.0-0.7) 11/09/18 06:00 Baso # (Auto) 0.01 K/mm3 (0.0-2.0) 11/09/18 06:00 Absolute Neuts (auto) 2.98 (1.4-6.5) 11/09/18 06:00 Sodium 137 mmol/L (132-148) 11/09/18 06:00 Potassium 3.4 mmol/L (3.6-5.0) L 11/09/18 06:00 Chloride 102 mmol/L (98-107) 11/09/18 06:00 Carbon Dioxide 28 mmol/L (21-33) 11/09/18 06:00 Anion Gap 11 (10-20) 11/09/18 06:00 BUN 19 mg/dL (7-21) 11/09/18 06:00 Creatinine 1.0 mg/dl (0.8-1.5) 11/09/18 06:00 Est GFR ( Amer) > 60 11/09/18 06:00 Est GFR (Non-Af Amer) > 60 11/09/18 06:00 Random Glucose 96 mg/dL (70-110) 11/09/18 06:00 Hemoglobin A1c 5.3 % (4.2-6.5) 11/09/18 06:00 Calcium 9.3 mg/dL (8.4-10.5) 11/09/18 06:00 Phosphorus 3.7 mg/dL (2.5-4.5) 11/09/18 06:00 Magnesium 2.1 mg/dL (1.7-2.2) 11/09/18 06:00 Iron 67 ug/dL (45-180) 11/09/18 06:00 TIBC 287 ug/dL (261-462) 11/09/18 06:00 % Saturation 23 % (20-55) 11/09/18 06:00 Total Bilirubin 0.8 mg/dL (0.2-1.3) 11/09/18 06:00 AST 29 U/L (17-59) 11/09/18 06:00 ALT 17 U/L (7-56) 11/09/18 06:00 Alkaline Phosphatase 56 U/L (38-126) 11/09/18 06:00 Troponin I < 0.01 ng/mL 11/09/18 06:00 NT-Pro-B Natriuret Pep 62.3 pg/mL (0-450) 11/09/18 02:10 Total Protein 7.3 g/dL (5.8-8.3) 11/09/18 06:00 Albumin 4.2 g/dL (3.0-4.8) 11/09/18 06:00 Globulin 3.1 gm/dL 11/09/18 06:00 Albumin/Globulin Ratio 1.4 (1.1-1.8) 11/09/18 06:00 Triglycerides 276 mg/dL (35-160) H 11/09/18 06:00 Cholesterol 168 mg/dL (130-200) 11/09/18 06:00 LDL Cholesterol Direct 82 mg/dL (0-129) 11/09/18 06:00 HDL Cholesterol 47 mg/dL (29-60) 11/09/18 06:00 Vitamin B12 240 pg/mL (239-931) 11/09/18 06:00 Folate 5.7 ng/mL 11/09/18 06:00 TSH 3rd Generation 3.41 mIU/mL (0.46-4.68) 11/09/18 06:00 Alcohol, Quantitative < 10 mg/dL (0-10) 11/09/18 06:00 Attending/Attestation - Attestation I have personally seen and examined this patient.: Yes I have fully participated in the care of the patient.: Yes I have reviewed all pertinent clinical information, including history, physical exam and plan: Yes
[2018-11-09 12:59] LABS: FOLATE 5.7 ng/mL
== END 2018-11-09 10:51 | disposition left against medical advice (07) ==
LOC: ED 01:42 → ERH 03:59 → 3RNO 05:05
PROVIDERS: ADMIT Internal Medicine; ATTEND Internal Medicine
DX: R07.89 Other chest pain (principal); J44.9 Chronic obstructive pulmonary disease, unspecified; I10 Essential (primary) hypertension; F12.10 Cannabis abuse, uncomplicated; F10.10 Alcohol abuse, uncomplicated; E78.5 Hyperlipidemia, unspecified; F17.210 Nicotine dependence, cigarettes, uncomplicated; Z82.49 Family history of ischemic heart disease and other diseases of the circulatory system
CPT/HCPCS: 36415; 71045; 80053; 80061; 80320; 82607; 82746; 83036; 83540; 83550; 83735; 83880; 84100; 84443; 84484; 85025; 93005; 94640; 96374; 99283; G0378; J3411; J7070